=== PATIENT | female | born 1965 | race Caucasian/White ===

== ENCOUNTER 2018-03-30 09:00 | Observation (INO) ==
[~2018-03-30 09:00] MED LIST: Bacitracin 50,000 UNIT, Polymyxin B Sulfate 500,000 UNIT, Sodium Chloride IRRigation 1,... IR ONE
[2018-03-30] MEDS ORDERED: CeFAZolin Syr 2,000MG/20 ML 2,000 MG/20 ML SYRINGE IVPB ONE (09:31)
[2018-03-30] MEDS ORDERED: Albuterol 2.5 MG/3 ML NEBULIZER ONE (09:35)
[2018-03-30] MEDS ORDERED: Ringers Solution, Lactated 1,000 ML IVC SCH (09:45)
[2018-03-30] MEDS ORDERED: Scopolamine Patch 1.5 MG PATCH.TD72 TD ONE (09:56)
[2018-03-30] MEDS ORDERED: Famotidine 20 MG/2 ML VIAL IVP ONE (09:56)
[2018-03-30] MEDS ORDERED: Acetaminophen IV 1,000 MG/100 ML INFUS..BTL IVPB ONE (09:57)
[2018-03-30] MEDS ORDERED: Pregabalin 75 MG CAPSULE PO ONE (09:57)
[2018-03-30] MEDS ORDERED: *HR* LORazepam 1 MG TABLET PO STA (10:04)
--- NOTE | 2018-03-30 10:04 | Anesthesia Evaluation PreOp ---
Date of Encounter: 03/30/18 Time of Encounter: 10:02 - Past History Planned Operation: ACDF C5-7 Cardiac History: Denies any Significant Hx, Hyperlipidemia Pulmonary History: Smoker LEAD BUSINESS ANALYST History: Seizures (none in >24months since Keppra started), Other (Cervical RadiculopathyChronic pain - BUE pain & falling asleep , occasional LLE sx. Anxiety/Depression. PTSD with associated nightmares) Other Medical History: Denies Any Significant HX Anesthesia History: No Prior Anesthetic Complications, Past Anesthesia ( Colectomy, C-sections x 3, Iliostomy, Tubal, Anais, Hyster, Hernia repair), Problems ("VERY HIGH TOLERANCE to PAIN MEDS - IT TAKES A LOT") Alcohol Use: unknown Drug use: unknown Medications and Allergies Gabapentin [Neurontin] 300 - 600 mg PO HS 03/30/18 [History] Lovastatin [Lovastatin] 40 mg PO DAILY 03/30/18 [History] Mirtazapine [Remeron] 15 mg PO HS 03/30/18 [History] Tizanidine HCl [Tizanidine HCl] 2 - 4 mg PO TID PRN 03/30/18 [History] Trazodone HCl [Trazodone HCl] 100 mg PO HS PRN 03/30/18 [History] diazePAM [Valium] 5 mg PO TID 03/30/18 [History] levETIRAcetam [Keppra] 500 mg PO BID 03/30/18 [History] 3 Allergy/AdvReac Type Severity Reaction Status Date / Time doxycycline Allergy See Verified 03/30/18 10:08 Comments - Meds/Allergy Pre-op Review Medications Reviewed: Yes Allergies Reviewed: Yes Beta Blockers on Current Med List: No Anesthesia Results - Labs Laboratory Tests 03/28/18 03/28/18 03/28/18 15:12 15:12 15:12 WBC 8.4 Hgb 14.1 Hct 42.0 Plt Count 516 H PT 11.5 INR 1.1 APTT 29.4 Sodium 138 Potassium 3.8 Chloride 103 BUN 9 Est GFR (Non-Af Amer) > 60 Anesthesia Exam O2 Sat Height 1.52 m Height 1.52 m Weight 65.771 kg Weight 65.771 kg O2 Sat by Pulse Oximetry 98 Vital Signs Temp Pulse Resp BP Pulse Ox 97.8 F 94 18 141/91 98 03/30/18 09:27 03/30/18 09:27 03/30/18 09:27 03/30/18 09:27 03/30/18 09:27 Height: 5'1 Weight: 145# BMI = 28 NPO (# of Hours): MNOC - HEENT Pupil (Motor): Pupils equal, EOMI Mallampati: II Teeth: Normal (fair dentition) Oral Opening: Greater than 3 - LEAD BUSINESS ANALYST LOC: Oriented LEAD BUSINESS ANALYST Motor: Normal RUE, Normal LUE, Normal RLE, Normal LLE, Normal Face LEAD BUSINESS ANALYST Sensory: Normal: RUE, LUE, RLE, LLE, Face - Cardiac Rhythm: Regular Murmur: None - Pulmonary Breath Sounds: bilateral Clear Respiratory Effort: Symmetrical Anesthesia Assess/Plan ASA Score: 3 (HTN, Seizures, PTSD, Anxiety/Depression, Smoker) Modified [place] Scale for Level of Consciousness: Cooperative, oriented, and tranquil Anesthetic Plan: General Monitoring Plan: Standard Monitors Recovery Plan: PACU Anes Supervising Prov Stmt: Pt seen/evaluated, R&B discussed, questions answered and consent obtained. Li West MD
[2018-03-30] MEDS ORDERED: Lidocaine -MPF 2% 2 ML VIAL ONE (10:10)
[2018-03-30] MEDS ORDERED: cloNIDine HCl 0.1 MG TABLET PO ONE (10:10)
[2018-03-30] MEDS ORDERED: Dexamethasone 4 MG/ML VIAL ONE (10:10)
[2018-03-30] MEDS ORDERED: Ondansetron 4 MG/2 ML VIAL ONE (10:10)
[2018-03-30] MEDS ORDERED: Lidocaine -MPF 4% 5 ML AMPUL ONE (10:10)
[2018-03-30] MEDS ORDERED: *HR* FentaNYL (PF) 100 MCG/2 ML VIAL ONE ×2 (10:11→14:10)
[2018-03-30] MEDS ORDERED: *HR* Propofol 200 MG/20 ML VIAL IVP ONE (10:11)
[2018-03-30] MEDS: Albuterol 2.5 MG/3 ML NEBULIZER IH ONE ×2 (10:11→10:26)
[2018-03-30] MEDS ORDERED: *HR* Midazolam HCl 2 MG/2 ML VIAL ONE (10:11)
[2018-03-30] MEDS ORDERED: *HR* Remifentanil 1 MG VIAL IVP ONE (10:11)
--- NOTE | 2018-03-30 10:26 | History & Physical Report ---
Date of Encounter: 03/30/18 Time of Encounter: 10:25 24 Hour HP Update - Instructions Instructions: If the History and Physical is less than 30 days old and was completed prior to A.M. admission and or procedure and has NOT been updated on calendar day of procedure please complete this update prior to performing procedure. - Update Patient reports changes in Medical Condition: No Changes in examination, assessment, or condition: No Changes in Medication: No Preop tests/diagnostics Reviewed: Yes Pre-Op MRSA Screen: Negative Surgery Remains Indicated: Yes Consent for Planned Operative Procedure(s) Verified: Yes - Pre-Operative Checklist Preoperative Checklist Indicated: No Prophylactic Antibiotic Ordered: Yes Home Medications Include Beta Chivo: No Beta Chivo Taken Today (Day of Surgery): No Beta Chivo Taken Yesterday (Day Prior to Surgery): No Is VTE Prophylaxis Indicated?: Yes
[2018-03-30] MEDS ORDERED: *HR* FentaNYL PATCH 50 MCG PATCH TD ONE ×2 (10:42→10:45)
[2018-03-30] MEDS ORDERED: *HR* FentaNYL PATCH 25 MCG PATCH TD SCH (10:45)
[2018-03-30] MEDS ORDERED: EPHEDrine 50 MG/ML VIAL ONE (12:00)
[2018-03-30] MEDS ORDERED: *HR* PHENYLEPHRINE 1,000 MCG/10 ML SYRINGE IVP ONE ×2 (12:10→13:16)
[2018-03-30] MEDS ORDERED: *HR* Meperidine 25 MG/ML SYRINGE IVP PRN (12:49)
[2018-03-30] MEDS ORDERED: *HR* Labetalol 20 MG/4 ML SYRINGE IVP PRN (12:49)
[2018-03-30] MEDS ORDERED: *HR* OxyCODONE Immed Rel 5 MG TABLET PO PRN (12:49)
[2018-03-30] MEDS ORDERED: *HR* Promethazine 25 MG/ML VIAL IVP PRN (12:49)
[2018-03-30] MEDS ORDERED: Ondansetron 4 MG/2 ML VIAL IVP ONE (12:49)
--- NOTE | 2018-03-30 14:13 | Orthopedic Operative Note ---
Date of procedure: 03/30/18 Pre-op diagnosis: Cervical stenosis, cervical radiculopathy Post-op diagnosis: same Operation/Findings: Anterior cervical decompression and fusion C5-C7: The patient was brought to the operating room and placed supine on the operating room table. Successful general endotracheal anesthesia intubation was performed. Neurophysiologic monitoring personnel placed leads on the upper and lower extremities as well as the cranium for EMG monitoring purposes. Appropriate baseline potentials were noted by the neurophysiologic monitoring staff. Smith catheter was placed prior to positioning. Compression boots and stockings were placed for deep vein thrombosis prophylaxis. Padding was also placed all bony prominences including the ulnar nerve near the medial epicondyles of the elbows were appropriately padded. Mild traction was placed on the bilateral shoulders and taped into place. Preoperative antibiotics were administered. The area from the mandible bilaterally to the upper thoraces was prepped and draped in the usual sterile fashion. A transverse incision was made at the level of the cricoid cartilage which is approximately 3 cm in length and extended from the midline of the cervical spine laterally towards the sternocleidomastoid muscle on the left. We then performed standard medial approach to the carotid sheath. Sponges were used to tease the fascial medial to the sternocleidomastoid muscle while carefully controlling and palpating the carotid artery. Using careful dissection we were able to get to the level of the anterior vertebral bodies and longus coli muscles. The spinal needle was placed at the appropriate C6-7 level, and intraoperative radiograph was obtained which was a cervical spine lateral radiograph. The needle and radiograph confirmed we were at the correct C6-7 operative level. We further exposed this level by using Bovie cautery under the medial edge of the longus colli muscles to allow them to be retracted approximately 2 mm laterally on each side. An 11 blade was used to perform anterior discectomy at the appropriate C6-7 level after an initial annulotomy of the anterior longitudinal ligament and annulus was performed. Further disc material was removed with pituitary Rongeurs. Subsequently, Synthes pins were placed at the C6 and C7 vertebral bodies respectively to provide distraction. We then used a Trimline cervical retractor which was placed in both medial and lateral as well as inferior superior direction to allow full visualization of the appropriate C6-7 disc and C6 and C7 vertebral bodies. The Leica microscope was brought to the field and the remainder of the procedure was performed under the guidance of this microscope. Using pituitary rongeurs and small curettes, various micro- instruments, a full discectomy was performed at the appropriate C6-C7 level. The posterior longitudinal ligament was encountered and appeared partially calcified. A portion of this ligament was removed. After complete and thorough discectomy and removal of spondylitic material was performed the endplates of the C6 and C7 vertebral bodies were prepared with a bur until allow bleeding of cancellous bone. A 8mm trial graft was evaluated and appeared to fit quite well within the excised C6-7 disc space. A cortico- cancellous allograft of 8 mm was utilized, carefully tapped into place within the excised disc space with the aid of a bone tamp. It was seated approximately 2 mm from the anterior edge of the cortex of the adjacent vertebral bodies. We then turned our attention to the C5-6 level where a similar series of procedures was performed including discectomy, removal of spondylitic material, end plate preparation, and trial grafting. An 8mm trial fit well within the C5-6 disc space. A 8 mm allograft was then placed at C5-6. A cervical plate was then placed on the anterior aspect of the C5, C6, and C7 vertebral bodies. The plate was placed in the midline position after drilling six 13 mm self tapping screws and inserting them. They were locked in place using standard Venture plate maneuvers. At this point a lateral radiograph of the cervical spine was obtained and showed satisfactory position of the graft and plate. The wound was copiously irrigated and bleeders encountered were cauterized using Bovie cautery. Platysma was closed with interrupted 2-0 Vicryl sutures. Running 3-0 Monocryl suture was used for skin closure. Sterile dressing was placed over the neck wound. A cervical collar was placed. The patient was transferred to a hospital bed and extubated. The patient was noted to be fully motor and sensory intact in the recovery room at the end of the procedure. The medications. All sponge instrument and needle counts were correct at the end of the procedure. Anesthesia: GETA Surgeon: Jonathan Perdue Jr Was there an pediatric dental assistant present: No Estimated blood loss (cc): 25 Specimen: None Condition: stable Disposition: PACU
[2018-03-30] MEDS ORDERED: diazePAM 5 MG TABLET PO SCH (15:36)
[2018-03-30] MEDS ORDERED: Acetaminophen 325 MG TABLET PO PRN (15:36)
[2018-03-30] MEDS ORDERED: Naloxone 0.4 MG/ML INJ IVP PRN (15:36)
[2018-03-30] MEDS ORDERED: traZODone 50 MG TABLET PO PRN (15:36)
[2018-03-30] MEDS: Ringers Solution, Lactated 1,000 ML IVC SCH (15:40)
[2018-03-30] MEDS: CeFAZolin Pre 2,000 MG/100 ML 2,000 MG/100 ML BAG IVPB SCH (17:40)
[2018-03-30] MEDS: *HR* OxyCODONE Immed Rel 5 MG TABLET PO PRN (17:40)
[2018-03-30] MEDS: tiZANidine 4 MG TABLET PO PRN (20:10)
[2018-03-30] MEDS: *HR* HYDROcodone/Acet 5/325 mg TABLET PO PRN (20:10)
[2018-03-30] MEDS: levETIRAcetam 250 MG TABLET PO SCH (20:11)
[2018-03-30] MEDS: Mirtazapine 15 MG TABLET PO SCH (20:11)
[2018-03-31] MEDS: diazePAM 5 MG TABLET PO SCH ×4 (00:58→20:17)
[2018-03-31] MEDS: CeFAZolin Pre 2,000 MG/100 ML 2,000 MG/100 ML BAG IVPB SCH (00:58)
[2018-03-31] MEDS: *HR* OxyCODONE Immed Rel 5 MG TABLET PO PRN ×5 (00:58→22:22)
[2018-03-31] MEDS: Ringers Solution, Lactated 1,000 ML IVC SCH ×3 (00:58→20:16)
[2018-03-31] MEDS: *HR* HYDROcodone/Acet 5/325 mg TABLET PO PRN ×3 (02:33→16:43)
[2018-03-31] MEDS ORDERED: Acetaminophen IV 1,000 MG/100 ML INFUS..BTL IVPB ONE (03:44)
[2018-03-31] MEDS: levETIRAcetam 250 MG TABLET PO SCH ×2 (07:29→20:17)
--- NOTE | 2018-03-31 07:42 | Discharge Summary ---
- NOTES TO OUTPATIENT PROVIDER Notes to Outpatient Provider: Patient with seeking behavior and evidence of aberrant drug use. Please evaluate further for addiction risk and consider referral for counseling/treatment. Orders not resulted at time of discharge: Pending orders 03/31/18 08:16 XR cervical spine 2V [XR] Routine Date of Encounter: 04/01/18 Time of Encounter: 16:23 - Discharge Diagnosis (1) Status post cervical spinal fusion Priority: Primary Status: Acute (2) Cervical spinal stenosis Priority: Primary Status: Chronic (3) Cervical radiculopathy Priority: Primary Status: Chronic - Hospital Course Hospital course: Ms. Howard is a 53 year old female s/p Anterior cervical decompression and fusion C5-C7 on 03/30/[address] Perdue for Cervical stenosis, cervical radiculopathy The patient had an uneventful postoperative course with regard to her surgery. Progressed from intravenous analgesic needs to oral analgesic needs only. Patient developed drug-seeking behavior and was noted to be pulling bottles in and out of her purse and trying to discard them in emesis bags. She was found to have prescription that were not reported on her preoperative OARRS and empty prescription bottles in her room. With patient's abnormal behavior there was concern for illicit use. Patient was found to be in violation of preoperative pain contract with Dr. Perdue and therefore Dr. Perdue is requesting the patient not receive any narcotic prescriptions postoperatively from [facility]. Patient will be discharged with oral Tylenol as needed for pain and swelling. Remained neurovascularly intact and mobilized satisfactorily. All intraoperative and/or postoperative radiographic studies were satisfactory. Patient is discharged with plan for rehabilitation and follow-up in 2 weeks post discharge on analgesic medication and patient's home medications. - Time Spent with Patient Total time spent providing and/or coordinating discharge services: - Discharge Medications Prescriptions: Acetaminophen [Tylenol] 650 mg PO Q6HR PRN 7 Days #56 tablet PRN Reason: Pain Home Medications: Gabapentin [Neurontin] 300 - 600 mg PO HS 03/30/18 [History] Lovastatin 40 mg PO DAILY 03/30/18 [History] Mirtazapine [Remeron] 15 mg PO HS 03/30/18 [History] Tizanidine HCl 2 - 4 mg PO TID PRN 03/30/18 [History] Trazodone HCl 100 mg PO HS PRN 03/30/18 [History] diazePAM [Valium] 5 mg PO TID 03/30/18 [History] levETIRAcetam [Keppra] 500 mg PO BID 03/30/18 [History] Acetaminophen [Tylenol] 650 mg PO Q6HR PRN 7 Days #56 tablet 04/01/18 [Rx] Allergies/Adverse Reactions: 3 Allergy/AdvReac Type Severity Reaction Status Date / Time doxycycline Allergy See Verified 03/30/18 10:08 Comments Date of admission: 03/30/18 Primary care physician: Kristin Davis MD Consults: 03/30/18 15:36 Consult to Occupational Therapy [CONS] Routine Comment: Evaluate, develop and implement POC Reason for Consult: Postoperative rehabilitation Does patient have active BEDREST order?: No Is patient medically & hemodynamically stable?: Yes Patient assessed for mobility or mobilized this visit?: No Consult to Physical Therapy [CONS] Routine Comment: Evaluate, develop and implement POC Reason for Consult: Postoperative rehabilitation Does patient have active BEDREST order?: No Is patient medically & hemodynamically stable?: Yes Patient assessed for mobility or mobilized this visit?: No Consult to Spine Navigator [CONS] [CONS] Routine - VTE Documentation of Mechanical Device: Intermittent pneumatic compression device - Impressions ITS Impressions Cervical Spine X-Ray 03/30/18 00:00 IMPRESSION: Intraoperative cervical spine radiograph demonstrates marker placement at C5-C6 disc space anteriorly. Findings were discussed with Jonathan Perdue at 12:55 pm on 03/30/2018. D/ / Ponce Granger MD / Ponce Granger MD Interpreting Provider: Ponce Granger MD Cervical Spine X-Ray 03/30/18 00:00 IMPRESSION: Single limited lateral intraprocedural image demonstrates ACDF at C5 through C7 without gross adverse abnormality noted. D/ / 03/30/2018 17:41:16 Justo English MD / crow Interpreting Provider: Justo English MD - Patient Status Disposition: Home Health Service Condition: Fair Functional capacity at discharge: uses cane/walker Overall status at discharge: patient is progressing back to baseline - Discharge Instructions Follow Up With: Eveline Chery PAC [Physician Sample Finisher] - 04/12/18 3:30 pm Jonathan Perdue Jr, MD [Partnered Physician] - 07/01/18 11:45 am Additional Instructions: Discharge Instructions: Cervical Please call [facility] ([phone]), your Primary Care Physician, or report to the ER if you have any of the following symptoms: Fever greater that 101.5, increased pain/redness/drainage/odor for your incision site or any other concerning symptoms. ACTIVITY * May Shower * No Tub Baths * No Smoking * No Swimming * No Driving * Wear Collar when up walking MEDICATIONS: Upon discharge resume your home medications. Take all the medications as prescribed. Take a stool softener if taking narcotic pain medications. Stool softeners are only effective if you drink enough fluids. Drink 6-8 glass of water or fluids a day, unless this is not allowed for another health problem. Despite using stool softeners, if you haven't had a bowel movement in 3 days, please switch to a gentle laxative. Gentle laxatives are sold over the counter. You should have a bowel movement within 24 hours, if not call the office. You will be discharged from the hospital with a prescription for pain medication. You are encouraged to decrease the use of narcotic pain medication as tolerated. Should you require a refill, please call the office. It is best to call 48-72 hours in advance of needing a prescription refill so you don't run out of medication. WOUND CARE: Leave steri-strips in place until they fall off on their own. Pat dry when you get out of the shower. FOLLOW-UP: Please follow up with your surgeon in the orthopedic clinic in 2 weeks from the day of surgery. References: [employer] ([email or web address]) - Diet and Activity Activity: as per physical therapy Diet: advance to your usual diet
--- NOTE | 2018-03-31 09:56 | Orthopedics Progress Note ---
Date of Encounter: 03/31/18 Time of Encounter: 09:15 - Assessment and Plan (1) Status post cervical spinal fusion Current Visit: Yes Status: Acute (2) Cervical spinal stenosis Current Visit: Yes Status: Chronic (3) Cervical radiculopathy Current Visit: Yes Status: Chronic Subjective Principal diagnosis: Cervical stenosis, cervical radiculopathy Interval history: Postoperative day #1 status post Anterior cervical decompression and fusion C5- C7 performed on 03/30/[address] Perdue for Cervical stenosis, cervical radiculopathy. The patient is without complaints. She exhibits some odd behavior, repetitively asking for assistance to the restroom as well as needing a toothbrush and toothpaste. She is preoccupied with her cell phone as well as cords laying about the room. She is very uncooperative with any examination. With examination of her right hand she makes a fist and states "look my hand I cannot open it" however she is reaching for an grasping coffee mug with good control as well as the positioning herself around the bed and dressing fine objects such as her cell phone charging cord and moving those objects around with no problem. Afebrile vital signs are stable. Incision is clean dry and intact. Neurovascularly intact with regard to bilateral lower extremities. Fires all upper and lower extremity motor groups. Assessment: Stable postoperative. Questionable postoperative confusion Plan: Reviewed postoperative restrictions and precautions. Patient very distracted during this time, is very hard to keep her attention. Collar present and patient aware to apply with activity. Bracing to adjust collar. Mobilize with therapy Continue analgesics as needed Discharge planning - awaiting therapy recommendations Radiographs pending Therapy recommendations were not made today. Discussed with therapy Department who states that they did not receive the consult secondary to technology issues. Did discuss with them that this is necessary prior to patient's discharge. They state that they will evaluate her first thing in the morning on 04/01/18. Discussed patient's confusion and peculiar behavior with Dr. Perdue. She agrees that this is not necessarily patient's baseline. We will decrease sedative medications including pain medication to reduce likelihood of these contributing to patient's confusion. Objective Vital signs: Vital Signs Temp Pulse Resp BP Pulse Ox 03/31/18 08:24 94 03/31/18 08:21 97.6 F 83 16 131/78 94 05/23/18 23:01 97.6 F 79 14 116/76 93 03/30/18 17:20 97.9 F 89 18 129/73 93 03/30/18 16:45 98 F 91 18 120/78 94 03/30/18 16:15 97.9 F 92 18 122/81 92 03/30/18 15:45 98 F 88 16 115/74 94 03/30/18 15:15 97.9 F 91 18 127/76 93 03/30/18 14:46 98.1 F 91 20 122/50 93 03/30/18 14:36 95 20 157/99 94 03/30/18 14:26 97 20 142/96 97 03/30/18 14:16 97.7 F 93 16 142/82 92 Intake and Output 03/30/18 03/31/18 03/31/18 23:59 07:59 15:59 Intake Total 100 / 100 2049 630 / 630 Output Total 450 / 450 1000 / 1000 Balance 100 / 100 1600 / 1600 -370 / -370 Intake: IV Fluids 100 / 100 2049 150 / 150 Lactated Ringers 1,000 ML @ 100 1850 / 1850 150 / 150 mls/hr IVC .Q10H [facility] Rx#: [id number] Ofirmev 1,000 mg/100 ml 1,000 100 / 100 mg In 100 ml @ 400 mls/hr IVPB ONCE ONE Rx#:[id number] Ancef Premix 2,000 MG/100 ML 2, 100 / 100 100 / 100 000 mg In 100 ml @ 200 mls/hr IVPB Q8H [facility] Rx#:[id number] Oral 480 / 480 Output: Catheter 450 / 450 1000 / 1000 - VTE Documentation of Mechanical Device: Intermittent pneumatic compression device Consult Discharge Plan - Plan Additional Instructions: Discharge Instructions: Cervical Please call [facility] ([phone]), your Primary Care Physician, or report to the ER if you have any of the following symptoms: Fever greater that 101.5, increased pain/redness/drainage/odor for your incision site or any other concerning symptoms. ACTIVITY * May Shower * No Tub Baths * No Smoking * No Swimming * No Driving * Wear Collar when up walking MEDICATIONS: Upon discharge resume your home medications. Take all the medications as prescribed. Take a stool softener if taking narcotic pain medications. Stool softeners are only effective if you drink enough fluids. Drink 6-8 glass of water or fluids a day, unless this is not allowed for another health problem. Despite using stool softeners, if you haven't had a bowel movement in 3 days, please switch to a gentle laxative. Gentle laxatives are sold over the counter. You should have a bowel movement within 24 hours, if not call the office. You will be discharged from the hospital with a prescription for pain medication. You are encouraged to decrease the use of narcotic pain medication as tolerated. Should you require a refill, please call the office. It is best to call 48-72 hours in advance of needing a prescription refill so you don't run out of medication. WOUND CARE: Leave steri-strips in place until they fall off on their own. Pat dry when you get out of the shower. FOLLOW-UP: Please follow up with your surgeon in the orthopedic clinic in 2 weeks from the day of surgery. References: [employer] ([email or web address]) Referrals: Eveline Chery PAC [Physician Management Tech] - 04/12/18 3:30 pm Jonathan Perdue Jr, MD [Partnered Physician] - 07/01/18 11:45 am Prescriptions: Oxycodone HCl 5 mg PO Q6H PRN 7 Days #28 tablet PRN Reason: Severe Pain
[2018-03-31] MEDS: tiZANidine 4 MG TABLET PO PRN ×2 (10:20→16:43)
[2018-03-31] MEDS: Acetaminophen IV 1,000 MG/100 ML INFUS..BTL IVPB PRN ×2 (11:28→18:08)
[2018-03-31] MEDS: Mirtazapine 15 MG TABLET PO SCH (20:17)
[2018-03-31] MEDS: Ondansetron 4 MG/2 ML VIAL IVP PRN (21:23)
[2018-04-01] MEDS: tiZANidine 4 MG TABLET PO PRN (01:50)
[2018-04-01] MEDS: *HR* HYDROcodone/Acet 5/325 mg TABLET PO PRN (01:50)
[2018-04-01] MEDS: Ondansetron 4 MG/2 ML VIAL IVP PRN ×2 (04:06→10:18)
[2018-04-01] MEDS: Ringers Solution, Lactated 1,000 ML IVC SCH (04:06)
[2018-04-01] MEDS ORDERED: *HR* HYDROcodone/Acet 5/325 mg TABLET PO PRN (07:54)
[2018-04-01] MEDS: diazePAM 5 MG TABLET PO SCH ×2 (08:06→15:37)
[2018-04-01] MEDS: levETIRAcetam 250 MG TABLET PO SCH (08:06)
--- NOTE | 2018-04-01 08:43 | Orthopedics Progress Note ---
Date of Encounter: 04/01/18 Time of Encounter: 08:43 - Assessment and Plan (1) Status post cervical spinal fusion Current Visit: Yes Status: Acute (2) Cervical spinal stenosis Current Visit: Yes Status: Chronic (3) Cervical radiculopathy Current Visit: Yes Status: Chronic Subjective Principal diagnosis: Cervical stenosis, cervical radiculopathy Interval history: Postoperative day #2 status post Anterior cervical decompression and fusion C5- C7 performed on 03/30/[address] Perdue for Cervical stenosis, cervical radiculopathy. The patient is stating that she needs IV pain medication today. She continues to exhibit some peculiar behavior behavior, including now some drug-seeking behavior repetitively asking for pain medication through her IV. She informs this provider that she spoke with Dr. Perdue prior to surgery that she was "promised" that she would receive "pain medicine in my IV and then pain medicine by mouth and then pain medicine in my IV and again and again". Patient noted to have improved mental clarity today and is not repetitively asking about her toothbrush however she does state numerous times that she wants IV pain medication. Patient states her right hand feels much better better today after moving IV from right to left hand. She demonstrates improved hand motion. Afebrile vital signs are stable. Incision is clean dry and intact. Neurovascularly intact with regard to bilateral lower extremities. Fires all upper and lower extremity motor groups. Assessment: Stable postoperative. Questionable drug-seeking behavior Plan: Reviewed postoperative restrictions and precautions. Patient very distracted during this time, is very hard to keep her attention as she continues to ask for IV pain medication. Collar present and patient aware to apply with activity. Mobilize with therapy - therapy recommending ECF; will make sure continuity is available Continue analgesics as needed - dosing schedule change secondary to patient seeking behavior and improved mental clarity today Discharge planning - awaiting SW recommendations; ECF versus home health Radiographs pending Later entry from mid morning: Receive call from [facility] nurse, that pill bottles were found in patient's room and patient was noted to have constricted pupils. Patient again exhibiting strange behavior as was noted yesterday tearing this time. Requested security as well as nurse retail associate manager bilingual be involved in patient's situation for patient's safety to evaluate if patient has been taking medications that were not prescribed or illicit. Also requested that nurse hold all controlled substances for the next 6 hours to see if patient 's mood and unsteadiness on her feet improved with holding these medications. Notify Dr. Perdue of the above situation he states he agreement with plan. He requests switching to observation status secondary concern for patient needing ECF placement and therapy's concerns. Objective Vital signs: Vital Signs Temp Pulse Resp BP Pulse Ox 04/01/18 06:58 98.5 F 90 16 125/80 93 04/01/18 04:18 98.3 F 84 17 120/77 92 03/31/18 20:38 98.3 F 83 17 97/63 90 03/31/18 16:00 98 F 82 16 100/67 94 Intake and Output 03/31/18 04/01/18 04/01/18 23:59 07:59 15:59 Intake Total 873 / 873 1200 / 1200 Output Total 150 / 150 500 / 500 Balance 723 / 723 700 / 700 Intake: IV Fluids 873 / 873 1000 / 1000 Lactated Ringers 1,000 ML @ 100 773 / 773 1000 / 1000 mls/hr IVC .Q10H YULY Rx#: [id number] Ofirmev 1,000 mg/100 ml 1,000 100 / 100 mg In 100 ml @ 400 mls/hr IVPB Q6HR PRN Rx#:[id number] Oral 0 / 0 200 / 200 Output: Urine 150 / 150 300 / 300 Emesis 200 / 200 Other: # Voids 1 Weight 65.6 kg Patient Weight 04/01/18 23:59 Weight 65.6 kg - VTE Documentation of Mechanical Device: Graduated compression elastic hosiery Consult Discharge Plan - Plan Additional Instructions: Discharge Instructions: Cervical Please call [facility] ([phone]), your Primary Care Physician, or report to the ER if you have any of the following symptoms: Fever greater that 101.5, increased pain/redness/drainage/odor for your incision site or any other concerning symptoms. ACTIVITY * May Shower * No Tub Baths * No Smoking * No Swimming * No Driving * Wear Collar when up walking MEDICATIONS: Upon discharge resume your home medications. Take all the medications as prescribed. Take a stool softener if taking narcotic pain medications. Stool softeners are only effective if you drink enough fluids. Drink 6-8 glass of water or fluids a day, unless this is not allowed for another health problem. Despite using stool softeners, if you haven't had a bowel movement in 3 days, please switch to a gentle laxative. Gentle laxatives are sold over the counter. You should have a bowel movement within 24 hours, if not call the office. You will be discharged from the hospital with a prescription for pain medication. You are encouraged to decrease the use of narcotic pain medication as tolerated. Should you require a refill, please call the office. It is best to call 48-72 hours in advance of needing a prescription refill so you don't run out of medication. WOUND CARE: Leave steri-strips in place until they fall off on their own. Pat dry when you get out of the shower. FOLLOW-UP: Please follow up with your surgeon in the orthopedic clinic in 2 weeks from the day of surgery. References: [employer] (www.apta.org) Referrals: Eveline Chery PAC [Physician Client Relationship Consultant] - 04/12/18 3:30 pm Jonathan Perdue Jr, MD [Partnered Physician] - 07/01/18 11:45 am Prescriptions: Acetaminophen [Tylenol] 650 mg PO Q6HR PRN 7 Days #56 tablet PRN Reason: Pain
[2018-04-01] MEDS ORDERED: *HR* Promethazine 25 MG/ML VIAL IVP PRN (10:16)
[2018-04-01] MEDS ORDERED: Ondansetron 4 MG/2 ML VIAL IVP PRN (16:02)
[2018-04-01 17:19] VITALS: BP 119/75
== END 2018-04-01 18:20 | disposition home or self-care (01) ==
LOC: 3ANU 09:00 → SAMDAY 09:00 → 3ANU 15:02
PROVIDERS: ADMIT Orthopaedic Surgery Orthopaedic Surgery of the Spine; ATTEND Orthopaedic Surgery Orthopaedic Surgery of the Spine

== ENCOUNTER 2018-08-22 19:58 | Inpatient (IN) ==
--- NOTE | 2018-08-22 22:26 | Internal Med History&Physical ---
Addendum entered and electronically signed by Yoandy Mahoney DO 23:35: SARA: Scr 2.19 at [facility]. Etiology pre-renal volume loss in addition to septic shock. Avoid nephrotoxic agents. Repeat bmp. urinalysis. Original Note: <MaruYoandy Cohen - Last Filed: 08/22/18 23:25> Date of Encounter: 08/22/18 Time of Encounter: 22:08 Internal Medicine - H&P: HPI Chief complaint: Diarrhea Admitted From: Hospital to Hospital Transfer Plans for Post Hospital Care: Home History of present illness: Ms. Howard is a 53 year old female presents transfer from [facility] with chief complaint of diarrhea. Patient reports she has a history of C. difficile infection in 2012 that resulted in colectomy with diverting ileostomy. In 2013 she had a revision. Patient was prescribed amoxicillin in July for upper respiratory infection. Patient took amoxicillin for 6 days and on the seventh day developed profuse diarrhea and was diagnosed with Clostridium difficile infection. Patient was started on 10 days of vancomycin orally on August 08. Her diarrhea improved and she started to have formed stools. However once regimen is completed she again developed diarrhea and became more lethargic in the past 2 days. She reports multiple bouts of diarrhea and one bout of vomiting. She presented to [facility] and was found to be hypotensive unresponsive to IV fluids (4L) and had a right femoral line placed and started on norepinephrine. CT abdomen and pelvis showed possible colitis within the rectosigmoid colon, ileus and or gastroenteritis without polyps obstruction. Patient was then transferred to [place]. Patient is able to tolerate by mouth intake, denies nausea. She reports abdominal pain throughout her lower abdomen. She denies headache, blurry vision, shortness of breath, lower extremity pain. Past Med Surg Social Fam HX - Past Medical History Medical history: hyperlipidemia, seizures Additional medical history: C. difficile Psychiatric history: anxiety - Past Surgical History Surgical History: colectomy - Social History Smoking Status: Current every day smoker Smokeless Tobacco Status: No Alcohol use: occasionally Drug use: unknown, marijuana - Family History Mother Hx Family Endocrine Disorder: Yes (Diabetes) Internal Medicine - H&P: Meds Gabapentin [Neurontin] 300 - 600 mg PO HS 03/30/18 [History] Lovastatin 40 mg PO DAILY 03/30/18 [History] Tizanidine HCl 2 - 4 mg PO TID PRN 03/30/18 [History] diazePAM [Valium] 5 mg PO TID 03/30/18 [History] levETIRAcetam [Keppra] 500 mg PO BID 03/30/18 [History] Acetaminophen [Tylenol] 650 mg PO Q6HR PRN 7 Days #56 tablet 04/01/18 [Rx] 3 Allergy/AdvReac Type Severity Reaction Status Date / Time doxycycline Allergy See Verified 03/30/18 10:08 Comments All Systems PM: A 10-system review of systems was performed and is negative for pertinent findings except as documented above in the HPI. Review of systems: Constitutional: Denies fever, chills HEENT: Denies headache, trauma, blurry vision, eye discharge, ear pain, ear discharge neck pain, reports sore throat, reports rhinorrhea Heart: Denies chest pain palpitations, LE edema Lungs: Denies shortness of breath cough Abdomen: Reports abdominal pain diarrhea. Denies nausea, vomiting MSK: Denies back pain, falls, joint pain Kidney: Denies dysuria, hematuria Skin: Denies rash, ulcers Neuro: Denies numbness and tingling Psych: denies axniety, depression - Constitutional Exam: General: pleasant, mild distress HEENT: Head atraumatic, normocephalic, EOMI, PERRL, absent ear discharge or trauma, Moist Mucous Membranes, uvula midline Neck: nontender to palpation, absent lymphadenopathy, Cardiovascualr: Regular rate and rhythm with no murmur, absent gallops or rubs, absent pedal edema, radial pulses 2 out of 4 Lungs: Clear to auscultation bilaterally, not in respiratory distress Abdomen: Soft tender, nondistended hyperactive bowel sounds, absent hepatomegaly Skin: warm and dry, absent rash, absent open wounds and nodules MSK: absent clubbing, cyanosis, joints without swelling Neuro: Cranial nerves II through XII intact, UE and LE sensation equal bilaterally, UE and LEstrength 5/5, alert oriented 3, Psych: good insight and judgment - Assessment and plan (1) Septic shock Current Visit: Yes Status: Acute Assessment and plan: Patient has leukocytosis, tachycardia Radiology C. difficile colitis Was given 4 L normal saline but remained hypotensive Initial lactic acid 2.5 repeat 1.5 Started on norepinephrine Plan: Repeat CBC, lactic acid. Continue norepinephrine with map goal of 60. Start lactated Ringer's (total 2000L). (2) Clostridium difficile colitis Current Visit: Yes Status: Acute Assessment and plan: Patient has recurrent Clostridium difficile infection Initial infection was not 2013 which resulted in a colectomy Current infection secondary to use of amoxicillin CT abdomen pelvis shows sigmoid colitis, possible ileus. This was done at [facility] and will be transferred to our PACS system. We will obtain a KUB. Start oral vancomycin, IV Flagyl. If patient cannot tolerate by mouth, has worsening abdominal pain, distention we will consult surgery and initiated NG tube. (3) History of seizures Current Visit: Yes Status: Acute Assessment and plan: Patient has history of seizures We will continue home dose of Keppra. (4) History of hyperlipidemia Current Visit: Yes Status: Acute Assessment and plan: Continue lovastatin (5) DVT prophylaxis Current Visit: Yes Status: Acute Assessment and plan: Heparin subcutaneous - Time Spent With Patient Total time spent is greater than 50% in coordination of care (as documented) at patient's floor/unit and/or counseling patient: <ParvinTabithatomekastephen - Last Filed: 08/22/18 23:40> Date of Encounter: 08/22/18 Internal Medicine - H&P: HPI History of present illness: Ms. Howard is a 53 year old female All Systems PM: A 10-system review of systems was performed and is negative for pertinent findings except as documented above in the HPI. - Constitutional Vitals: Temp Pulse Resp BP Pulse Ox 98.2 F 67 16 87/60 96 08/22/18 22:00 08/22/18 22:00 08/22/18 22:00 08/22/18 22:00 08/22/18 22:00 - Time Spent With Patient Total time spent is greater than 50% in coordination of care (as documented) at patient's floor/unit and/or counseling patient: - Attending Attestation Aline Howard is a 53 year old woman who reports a history of adult-onset epilepsy for which she takes levetiracetam and who developed severe C.diff in 2012 that required partial colectomy, presenting on transfer from [facility] for a recurrence. She states that last month she had an inner ear infection and was placed on amoxicillin by her PCP. 6 days into treatment she developed black, watery diarrhea. She was then diagnosed w/ C.diff on August 08 and started on oral vancomycin completing a 10 day course. 2 days after completion she developed another diarrheal recurrence with significant stomach cramping. She presented to [facility] today where she was found hypotensive and not responsive to 4L of IVF and subsequently started on norepinephrine via right femoral line. She was given IV metronidazole and transferred here. On my assessment she appears clinically well although she remains borderline hypotensive. She is conversant and was able to relay the above information to me in detail. At this time her chief complaint is lower abdominal discomfort. She feels she may be able to tolerate PO and does not want an NG tube and prefers not to have a rectal enema. She reports a family history of diabetes in mother and father. Vitals reviewed. Physical exam remarkable for well-developed white female lying comfortably in bed in no acute distress, dry oral mucosa, mild conjunctivae pallor, EOMI and PERRLA, no JVD or LAD, CTABL, normal S1/S2, surgical incision sites of prior surgery noted on abdomen, non-distended, mildly tender to palpation diffusely but no peritoneal reaction, no signs of peripheral cyanosis or edema on extremities, AO 4, no focal deficits and affect appropriate. We will admit to ICU for severe sepsis/septic shock due to severe C.diff colitis (recurring) as evidenced by initial lactic acidemia and hypotension requiring vasopressor support. Will need repeat abdominal imaging and serial abdominal exams. Obtain CT images from [facility]. Surgical and ID consults needed. IV fluid resuscitation and wean pressors as tolerated. Start 500 mg oral vancomycin by mouth every 6 hours as well as IV metronidazole 500 mg every 8 hours. Continue antiepileptic medications to prevent seizure. DVT prophylaxis with heparin. CCT 55 mins. CLIVE ARIZMENDI.
[2018-08-22] MEDS ORDERED: Naloxone 0.4 MG/ML INJ IVP PRN (22:29)
[2018-08-22] MEDS ORDERED: Ringers Solution, Lactated 1,000 ML IVC SCH (22:45)
[2018-08-22] MEDS ORDERED: Vancomycin Oral Soln 125 MG/2.5 ML UDC PO SCH (23:00)
[2018-08-22] MEDS: *HR* Heparin 5,000 UNIT/ML VIAL SQ SCH (23:29)
[2018-08-22] MEDS: levETIRAcetam 250 MG TABLET PO SCH (23:30)
[2018-08-22] MEDS: diazePAM 2 MG TABLET PO SCH (23:30)
[2018-08-22] MEDS: Gabapentin 300 MG CAPSULE PO SCH (23:30)
[2018-08-22] MEDS: Norepinephrine 4 MG in D5% in Water 250 ML IVC SCH (23:31)
[2018-08-22] MEDS: MetroNIDAZOLE 500 MG/100 ML 500 MG/100 ML BAG IVPB SCH (23:32)
[2018-08-23] MEDS: Ringers Solution, Lactated 1,000 ML IVC SCH ×2 (00:24→08:40)
[2018-08-23 00:28] LABS: VBG Ionized Calcium 1.13 mmol/L (1.15-1.35)
[2018-08-23 00:44] LABS: Magnesium 1.6 mg/dL (1.6-2.6)
[2018-08-23 00:45] LABS: Alanine Aminotransferase 46 Units/L (7-52); Albumin 3.3 g/dL (3.5-5.7); Albumin/Globulin Ratio 1.7 (1.1-2.2); Alkaline Phosphatase 90 Units/L (34-104); Aspartate Amino Transferase 19 Units/L (13-39); BUN/Creatinine Ratio 15 (6-26); Bilirubin,Total 0.7 mg/dL (0.3-1.0); Blood Urea Nitrogen 13 mg/dL (6-20); Calcium 7.8 mg/dL (8.6-10.3); Carbon Dioxide 19 mEq/L (23-29); Chloride 107 mEq/L (98-107); Globulin 1.9 g/dL (2.4-3.5); Glucose 122 mg/dL (70-105); Hematocrit 32.3 % (35.3-44.9); Hemoglobin 10.6 g/dL (11.5-15.4); Mean Corpuscular HGB Conc 32.8 g/dL (31.6-35.5); Mean Corpuscular Hemoglobin 32.7 pg (28.0-33.3); Mean Corpuscular Volume 99.7 fL (83.0-100.0); Mean Platelet Volume 8.7 fL (9.4-12.4); Osmolality,Calculated 277 (280-300); Platelet Count 369 K/mcL (140-400); Potassium 3.6 mEq/L (3.5-5.1); Red Blood Count 3.24 M/mcL (3.82-4.97); Red Cell Distribution Width 12.6 % (11.5-14.5); Sodium 133 mEq/L (136-145); Total Protein 5.2 g/dL (6.4-8.9); eGFR For Non-African Americans > 60 (> 60)
[2018-08-23 00:46] LABS: Bilirubin,Urine Negative (Negative); Blood,Urine Moderate (Negative); Clarity,Urine Clear (Clear); Color,Urine Dark Yellow (Yellow); Glucose,Urine (UA) Normal (Normal); Ketones,Urine Negative (Negative); Leukocyte Esterase,Urine Negative (Negative); Nitrite,Urine Negative (Negative); Protein,Urine 30 mg/dL (Neg-Trace); Specific Gravity,Urine 1.014 (1.010-1.025); Urobilinogen,Urine Normal (Normal)
[2018-08-23 00:49] LABS: Bacteria,Urine None Seen per hpf (None-Few); Hyaline Casts,Urine None Seen per lpf (None-Few); Squamous Epithelial Cell,Urine Few per lpf (None-Few); WBC,Urine 0-3 per hpf (0-3)
[2018-08-23 01:13] LABS: Basophils # 0.2 K/mcL (0.0-0.2); Lymphocytes # 1.9 K/mcL (0.6-4.6); Neutrophils # 4.5 K/mcL (1.6-8.9); Platelet Estimate Normal (Normal)
[2018-08-23] MEDS ORDERED: Isovue-370 500 ML INFUS..BTL IV ONE (05:27)
[2018-08-23] MEDS: *HR* Heparin 5,000 UNIT/ML VIAL SQ SCH ×3 (06:15→20:44)
[2018-08-23] MEDS: MetroNIDAZOLE 500 MG/100 ML 500 MG/100 ML BAG IVPB SCH ×3 (08:41→23:05)
[2018-08-23] MEDS: Potassium Chloride 40 MEQ/200 ML BAG IVPB PRN (08:41)
[2018-08-23] MEDS: levETIRAcetam 250 MG TABLET PO SCH ×2 (08:43→20:43)
[2018-08-23] MEDS: diazePAM 2 MG TABLET PO SCH ×2 (08:43→20:43)
--- NOTE | 2018-08-23 09:16 | Pulmonology Consult Note ---
<Harjit Pickering - Last Filed: 08/23/18 11:18> Date of Encounter: 08/23/18 Time of Encounter: 09:16 Assessment and Plan (1) Septic shock Current Visit: Yes Status: Acute Patient is currently afebrile, non-tachycardic, nontachypneic, and without leukocytosis Blood pressure continues to be hypotensive despite Levophed 3 g/minute Patient received 4 L normal saline from outside facility and is currently receiving another 2 L Ringer's lactate in the ICU Lactic acid is currently normal at 1 Continue to monitor blood pressure and response to fluid therapy-we will reevaluate after completing 2 L (2) Clostridium difficile colitis Current Visit: Yes Status: Acute Patient has recurrent Clostridium difficile infection Initial infection was in 2012 which resulted in colectomy with revision in 2013 Current infection is likely secondary to the use of amoxicillin to treat upper respiratory infection CT of the abdomen and pelvis [facility] shows sigmoid colitis with a possible ileus KUB x-ray shows dilation of the small bowel and colon-concerning for toxic megacolon in the setting of C. difficile Continue oral vancomycin and intravenous Flagyl Patient will be monitored closely for any new or worsening abdominal pain, distention, nausea/vomiting or by mouth intolerance-we will consult surgery and initiate NG tube if necessary (3) History of seizures Current Visit: Yes Status: Acute Patient has a history of adult onset epilepsy We will continue home dose of Keppra Gabapentin for neuropathic pain 2 mg diazepam twice a day for anxiety-we will monitor for signs of withdrawal as home dose is 5 mg 3 times a day (4) History of hyperlipidemia Current Visit: Yes Status: Acute Continue atorvastatin (5) DVT prophylaxis Current Visit: Yes Status: Acute Subcutaneous heparin 5000 units 3 times a day History of Present Illness Consult date: 08/23/18 Reason for consult: other (Possible sepsis) Chief complaint: Nausea, vomiting, abdominal pain History of present illness: Patient is a 53-year-old female who presents from to [facility] ICU from [facility] with the chief complaint of diarrhea. The patient has a positive history of recurrent Clostridium difficile infection which began in 2012 which resulted in colectomy with diverting ileostomy, which was revised in 2013. Patient was treated in July 2018 for upper respiratory infection with amoxicillin 6 days and developed profuse diarrhea and was diagnosed with C. difficile infection. Patient was then started on 10 days of oral vancomycin beginning August 08. Her diarrhea subsequently improved and she began to form solid stools. However once the regimen was completed she began to develop multiple bouts of diarrhea and vomiting which led to her becoming lethargic. Patient presented to [facility] with hypotension and was unresponsive. A right femoral line was placed and the patient was started on Levophed and received a 4 L IV fluid bolus. CT abdomen and pelvis showed possible colitis within the rectosigmoid sigmoid colon, ileus and/or gastroenteritis without polyps or obstruction. KUB x-ray performed at [facility] showed gaseous distention of the small and large bowel-concerned for toxic megacolon secondary to Clostridium C. difficile infection. Patient is being closely monitored and is currently able to tolerate by mouth intake, she denies any new abdominal pain although reports that she is "sore" diffusely throughout her abdomen. Patient will be monitored closely for any new or worsening abdominal pain, distention, or intolerance of by mouth intake. Past Med Surg Social Fam HX - Past Medical History Medical history: hyperlipidemia, seizures Additional medical history: C. difficile Psychiatric history: anxiety - Past Surgical History Surgical History: appendectomy, , colectomy Additional surgical history: bowel resection - Social History Smoking Status: Current every day smoker Smokeless Tobacco Status: No Alcohol use: occasionally Drug use: marijuana - Family History Mother Hx Family Endocrine Disorder: Yes (Diabetes) Medications and Allergies Gabapentin [Neurontin] 300 - 600 mg PO HS 03/30/18 [History] Lovastatin 40 mg PO DAILY 03/30/18 [History] Tizanidine HCl 2 - 4 mg PO TID PRN 03/30/18 [History] diazePAM [Valium] 5 mg PO TID 03/30/18 [History] levETIRAcetam [Keppra] 500 mg PO BID 03/30/18 [History] Acetaminophen [Tylenol] 650 mg PO Q6HR PRN 7 Days #56 tablet 04/01/18 [Rx] 3 Allergy/AdvReac Type Severity Reaction Status Date / Time doxycycline Allergy See Verified 03/30/18 10:08 Comments All Systems: The remainder of the systems were reviewed and are negative - Constitutional Constitutional: anorexia, headache(s) - EENT Eyes: other (The patient reports some blurriness of her vision which she ascribes to aging) Nose, mouth and throat: dysphagia, headache(s) - Cardiovascular Cardiovascular: no chest pain, no dyspnea, no leg edema - Respiratory Respiratory: no dyspnea - Gastrointestinal Gastrointestinal: abdominal pain (Patient reports "sore" abdomen diffusely-no new abdominal pain in the last 24 hours), diarrhea, vomiting (Patient states she had a vomiting episode last night), no hematochezia - Genitourinary Genitourinary: no hematuria - Neurological Neurological: numbness, tingling (Patient admits to chronic paresthesia) Physical Examination Vital Signs: Vital Signs, Last 4 Hours Pulse Resp BP Pulse Ox 08/23/18 06:00 72 16 88/57 93 General appearance: no acute distress, alert Eyes: nonicteric ENT: oropharynx moist Effort: normal Auscultation: bilateral: clear Cardiovascular: regular rate and rhythm Gastrointestinal: normoactive bowel sounds, soft, non-tender, non-distended Integumentary: normal Extremities: no cyanosis, no edema, pulses normal non-focal exam Results - Laboratory Findings CBC and BMP: 08/22/18 22:29 08/22/18 22:29 Abnormal lab findings: Abnormal lab results RBC 3.24 M/mcL (3.82-4.97) L 08/22/18 22:29 Hgb 10.6 g/dL (11.5-15.4) L 08/22/18 22: Hct 32.3 % (35.3-44.9) L 08/22/18 22: MPV 8.7 fL (9.4-12.4) L 08/22/18 22: Band Neutrophils % 18.0 % (0-4) H 08/22/18 22: Metamyelocytes % 10.0 % (0) H 08/22/18 22: Myelocytes % 2.0 % (0) H 08/22/18 22:29 Sodium 133 mEq/L (136-145) L 08/22/18 22:29 Carbon Dioxide 19 mEq/L (23-29) L 08/22/18 22:29 Glucose 122 mg/dL (70-105) H 08/22/18 22:29 POC Glucose 143 mg/dL (70-99) H 08/22/18 22:11 Calculated Osmolality 277 (280-300) L 10/15/18 22:29 Calcium 7.8 mg/dL (8.6-10.3) L 08/22/18 22:29 Venous Ioniz Calcium 1.13 mmol/L (1.15-1.35) L 08/23/18 00:25 Serum Total Protein 5.2 g/dL (6.4-8.9) L 08/22/18 22:29 Albumin 3.3 g/dL (3.5-5.7) L 08/22/18 22:29 Globulin 1.9 g/dL (2.4-3.5) L 08/22/18 22:29 Urine Protein 30 mg/dL (Neg-Trace) H 08/23/18 00:15 Urine Blood Moderate (Negative) H 08/23/18 00:15 Urine Microscopic RBC 5-15 per hpf (0-3) H 08/23/18 00:15 - Clinical Findings Intake & Output: Intake & Output 08/22/18 08/23/18 08/23/18 23:59 07:59 15:59 Intake Total 100 / 100 1224 / 1224 Output Total 975 / 975 Balance -875 / -875 1224 / 1224 Weight 62.6 kg Consult Discharge Plan - Plan Referrals: Kristin Davis MD [Primary Care Provider] - <Ramya Linares - Last Filed: 08/23/18 15:40> Date of Encounter: 08/23/18 All Systems: The remainder of the systems were reviewed and are negative Physical Examination Vital Signs: Vital Signs, Last 4 Hours Temp Pulse Resp BP Pulse Ox 08/23/18 14:00 69 14 86/53 96 08/23/18 13:00 68 14 87/57 96 08/23/18 12:24 97.8 F 08/23/18 12:00 71 16 88/56 96 Results - Laboratory Findings CBC and BMP: 08/22/18 22:29 08/22/18 22:29 Abnormal lab findings: Abnormal lab results RBC 3.24 M/mcL (3.82-4.97) L 08/22/18 22:29 Hgb 10.6 g/dL (11.5-15.4) L 08/22/18 22:29 Hct 32.3 % (35.3-44.9) L 08/22/18 22:29 MPV 8.7 fL (9.4-12.4) L 08/22/18 22:29 Band Neutrophils % 18.0 % (0-4) H 08/22/18 22:29 Metamyelocytes % 10.0 % (0) H 08/22/18 22:29 Myelocytes % 2.0 % (0) H 08/22/18 22:29 Sodium 133 mEq/L (136-145) L 08/22/18 22:29 Carbon Dioxide 19 mEq/L (23-29) L 08/22/18 22:29 Glucose 122 mg/dL (70-105) H 08/22/18 22:29 POC Glucose 143 mg/dL (70-99) H 08/22/18 22:11 Calculated Osmolality 277 (280-300) L 08/22/18 22:29 Calcium 7.8 mg/dL (8.6-10.3) L 08/22/18 22:29 Venous Ioniz Calcium 1.13 mmol/L (1.15-1.35) L 08/23/18 00:25 Serum Total Protein 5.2 g/dL (6.4-8.9) L 08/22/18 22:29 Albumin 3.3 g/dL (3.5-5.7) L 08/22/18 22:29 Globulin 1.9 g/dL (2.4-3.5) L 08/22/18 22:29 Urine Protein 30 mg/dL (Neg-Trace) H 08/23/18 00:15 Urine Blood Moderate (Negative) H 08/23/18 00:15 Urine Microscopic RBC 5-15 per hpf (0-3) H 08/23/18 00:15 - Clinical Findings Intake & Output: Intake & Output 08/22/18 08/23/18 08/23/18 23:59 07:59 15:59 Intake Total 100 / 100 2483 / 2483 Output Total 975 / 975 300 / 300 Balance -875 / -875 2183 / 2183 Weight 62.6 kg - Attending Attestation I examined this patient and my medical decision-making was reviewed with the Resident Physician. I agree with the documented findings, disposition and treatment plan as described except to the extent set forth below. Patient seen and examined. Labs, radiology, chart personally reviewed. Agree with resident's history and physical, assessment, plan with following comments: TECHNOLOGY INTEGRATION SPECIALIST: Patient follows commands, she is lethargic. Pulmonary: Acceptable oxygenation and ventilation she is protecting her airway. Cardiovascular: Patient remain in shock which his septic in nature and this is from her underlying C. difficile infection. She is being covered with antibiotics and she remains on Levophed and was given her more fluid bolus challenges with partial improvement in her blood pressure. GI: Nutrition per dietary and GI prophylaxis per routine. Even though patient' s WBC is not significantly elevated and her lactic acid is not within normal range to be significantly concerned, however the fact and she started requiring vasopressor even with fluid resuscitation and her previous history of surgery for same condition it is worrisome and for that reason surgery has been consulted for their opinion and we might even need to repeat images of her condition does not improve. Heme: DVT prophylaxis per routine ID: Continue antibiotics and plan to de-escalation. Patient is being covered with antibiotics for C. difficile. Renal; urine out put and renal funtion reviewed Endorcine: blood glucose is monitored Lines: all lines checked and no evidence of infections Skin: skin care to prevent pressure ulcers per nursing routine care I spent 35 min of Critical Care time with this patient. It involved decision making of high complexity to assess, manipulate, and support vital organ system failure and/or to prevent further life threatening deterioration of the patient' s condition. The time involved in the performance of separately reportable procedures was not counted toward critical care time.
[2018-08-23] MEDS: Vancomycin Oral Soln 125 MG/2.5 ML UDC PO SCH ×4 (09:23→20:42)
[2018-08-23] MEDS: Nicotine 14 MG PATCH.TD24 TD SCH (14:30)
--- NOTE | 2018-08-23 16:36 | General Surgery Consult Note ---
<Eveline Valles M - Last Filed: 08/23/18 18:07> Date of Encounter: 08/23/18 Time of Encounter: 16:29 Assessment and Plan (1) Enteritis due to Clostridium difficile Current Visit: Yes Status: Acute C diff enteritis with no evidence of necrosis; After review of her CT abd from [facility] it is unlikely she has any significant amount of colon to allow for possibility of surgical resection. The site of anastamosis of small bowel and rectum can be seen on CT. There is no indication of necrosis of the small bowel as the dilation seen is an expected post surgical change and not pathologic - agree with oral vanc - agree with need for ICU care - no surgical intervention planned History of Present Illness Consult date: 08/23/18 Reason for consult: abdominal pain Requesting physician: Harjit Pickering History of present illness: 53 y/o female with history of colostomy with diverting ileostomy presented with abdominal pain and diarrhea - ICU team has concern for severe recurrent c dif infection as cause of her septic shock. She is currently on one pressor with a BP of 86/53. She has had recent antibiotic exposure in amoxicillin to treat a URI three weeks ago. About two days after starting antibiotic began having explosive diarrhea approximately 15 times a day. She was seen in an outside ER and treated with oral vanco with some improvement. On Wednesday family found her at home alone passed out and very ill thus brought her to [facility]. In 2012 at [facility] underwent a colectomy with diverting ileostomy for treatment of post surgical ileus followed by a reversal in 2013 thus leaving her with small bowel connected to a minimal remaining portion of colon at the rectum. Surgical history included multiple abdominal surgeries including hysterectomy and hernia repair. At baseline she has 0-3 loose bowel movements a day, although her stool is never formed she has adapted to develop continence. Past Med Surg Social Fam HX - Past Medical History Medical history: hyperlipidemia, seizures Additional medical history: C. difficile Psychiatric history: anxiety - Past Surgical History Surgical History: appendectomy, , colectomy Additional surgical history: bowel resection - Social History Smoking Status: Current every day smoker Smokeless Tobacco Status: No Alcohol use: occasionally Drug use: marijuana - Family History Mother Hx Family Endocrine Disorder: Yes (Diabetes) Medications and Allergies Gabapentin [Neurontin] 300 - 600 mg PO HS 05/23/18 [History] Lovastatin 40 mg PO DAILY 03/30/18 [History] Tizanidine HCl 2 - 4 mg PO TID PRN 03/30/18 [History] diazePAM [Valium] 5 mg PO TID 03/30/18 [History] levETIRAcetam [Keppra] 500 mg PO BID 03/30/18 [History] Acetaminophen [Tylenol] 650 mg PO Q6HR PRN 7 Days #56 tablet 04/01/18 [Rx] 3 Allergy/AdvReac Type Severity Reaction Status Date / Time atorvastatin [From Lipitor] Allergy See Verified 08/23/18 18:41 Comments baclofen Allergy See Verified 08/23/18 18:41 Comments doxycycline Allergy Blister Verified 08/23/18 18:41 levofloxacin [From Levaquin] Allergy See Verified 08/23/18 18:41 Comments meloxicam [From Mobic] Allergy See Verified 08/23/18 18:41 Comments sertraline [From Zoloft] Allergy See Verified 08/23/18 18:41 Comments Review of Systems All systems PM: The remainder of the systems were reviewed and are negative - Constitutional fatigue, fever(s) - Cardiovascular dyspnea on exertion, no chest pain, no irregular heart rhythm, no palpitations - Respiratory cough, dyspnea, wheezing - Gastrointestinal abdominal pain, cramping, diarrhea, nausea, no constipation - Genitourinary Genitourinary: urinary hesitancy, no dysuria - Neurological dizziness, no syncope General Surgery Exam Initial Vital Signs Temp Pulse Resp BP Pulse Ox 98.2 F 67 16 87/60 96 08/22/18 22:00 08/22/18 22:00 08/22/18 22:00 08/22/18 22:00 08/22/18 22:00 - General physical appearance well nourished, moderate distress, chronically ill - Eyes normal ocular movement - ENT normal pinna, normal nares, no hearing loss - Respiratory normal expansion, normal respiratory effort wheezing: bilateral - Cardiovascular Cardiovascular exam: Present: RRR, no murmurs/rubs/gallops - Abdomen Abdomen general surgery: Present: bowel sounds present (hyperactive), soft, distended, surgical scars. Absent: scaphoid, tympanic, guarding, rebound Abdominal Tenderness: Present: diffusely Hernia: Present: none - Integumentary Integumentary general surgery: Present: warm and dry, no abnormal pigmentation. Absent: diaphoresis - Neurologic Present: CN 2-12 grossly intact, normal coordination, normal sensation - Musculoskeletal Present: normal gait, normal posture - Psychiatric Psychiatric general surgery: Present: A&Ox3, speech is normal, memory intact ( poor historian), other (anxious) Exam Initial Vital Signs Temp Pulse Resp BP Pulse Ox 98.2 F 67 16 87/60 96 08/22/18 22:00 08/22/18 22:00 08/22/18 22:00 08/22/18 22:00 08/22/18 22:00 Results - Labs 08/22/18 22:29 08/23/18 15:45 Abnormal lab results RBC 3.24 M/mcL (3.82-4.97) L 08/22/18 22:29 Hgb 10.6 g/dL (11.5-15.4) L 08/22/18 22: Hct 32.3 % (35.3-44.9) L 08/22/18 22:29 MPV 8.7 fL (9.4-12.4) L 08/22/18 22:29 Band Neutrophils % 18.0 % (0-4) H 08/22/18 22:29 Metamyelocytes % 10.0 % (0) H 08/22/18 22: Myelocytes % 2.0 % (0) H 08/22/18 22:29 Sodium 133 mEq/L (136-145) L 08/22/18 22:29 Carbon Dioxide 19 mEq/L (23-29) L 08/22/18 22:29 Glucose 122 mg/dL (70-105) H 08/22/18 22:29 POC Glucose 143 mg/dL (70-99) H 08/22/18 22:11 Calculated Osmolality 277 (280-300) L 08/22/18 22: Calcium 7.8 mg/dL (8.6-10.3) L 08/22/18 22:29 Venous Ioniz Calcium 1.13 mmol/L (1.15-1.35) L 08/23/18 00:25 Serum Total Protein 5.2 g/dL (6.4-8.9) L 08/22/18 22: Albumin 3.3 g/dL (3.5-5.7) L 08/22/18 22:29 Globulin 1.9 g/dL (2.4-3.5) L 08/22/18 22:29 Urine Protein 30 mg/dL (Neg-Trace) H 08/23/18 00:15 Urine Blood Moderate (Negative) H 08/23/18 00:15 Urine Microscopic RBC 5-15 per hpf (0-3) H 08/23/18 00:15 Diabetes panel 08/22/18 Range/Units 22:29 Sodium 133 L (136-145) mEq/L Potassium 3.6 (3.5-5.1) mEq/L Chloride 107 (98-107) mEq/L Carbon Dioxide 19 L (23-29) mEq/L BUN 13 (6-20) mg/dL Creatinine 0.84 (0.60-1.20) mg/dL Glucose 122 H (70-105) mg/dL Calcium 7.8 L (8.6-10.3) mg/dL AST 19 (13-39) Units/L ALT 46 (7-52) Units/L Alkaline Phosphatase 90 (34-104) Units/L Albumin 3.3 L (3.5-5.7) g/dL Calcium panel 08/22/18 08/22/18 Range/Units 22:29 22:29 Calcium 7.8 L (8.6-10.3) mg/dL Phosphorus 3.0 (2.7-4.5) mg/dL Albumin 3.3 L (3.5-5.7) g/dL Pituitary panel 08/22/18 Range/Units 22:29 Sodium 133 L (136-145) mEq/L Potassium 3.6 (3.5-5.1) mEq/L Chloride 107 (98-107) mEq/L Carbon Dioxide 19 L (23-29) mEq/L BUN 13 (6-20) mg/dL Creatinine 0.84 (0.60-1.20) mg/dL Glucose 122 H (70-105) mg/dL Calcium 7.8 L (8.6-10.3) mg/dL Adrenal panel 08/22/18 Range/Units 22:29 Sodium 133 L (136-145) mEq/L Potassium 3.6 (3.5-5.1) mEq/L Chloride 107 (98-107) mEq/L Carbon Dioxide 19 L (23-29) mEq/L BUN 13 (6-20) mg/dL Creatinine 0.84 (0.60-1.20) mg/dL Glucose 122 H (70-105) mg/dL Calcium 7.8 L (8.6-10.3) mg/dL Total Bilirubin 0.7 (0.3-1.0) mg/dL AST 19 (13-39) Units/L ALT 46 (7-52) Units/L Alkaline Phosphatase 90 (34-104) Units/L Albumin 3.3 L (3.5-5.7) g/dL All other labs normal. Consult Discharge Plan - Plan Referrals: Kristin Davis MD [Primary Care Provider] - <Bhavik Loredo - Last Filed: 08/23/18 22:20> Date of Encounter: 08/23/18 Review of Systems All systems PM: The remainder of the systems were reviewed and are negative General Surgery Exam Initial Vital Signs Temp Pulse Resp BP Pulse Ox 98.2 F 67 16 87/60 96 08/22/18 22:00 08/22/18 22:00 08/22/18 22:00 08/22/18 22:00 08/22/18 22:00 Exam Initial Vital Signs Temp Pulse Resp BP Pulse Ox 98.2 F 67 16 87/60 96 08/22/18 22:00 08/22/18 22:00 08/22/18 22:00 08/22/18 22:00 08/22/18 22:00 Results - Labs 08/22/18 22:29 08/23/18 15:45 Abnormal lab results RBC 3.24 M/mcL (3.82-4.97) L 08/22/18 22:29 Hgb 10.6 g/dL (11.5-15.4) L 08/22/18 22:29 Hct 32.3 % (35.3-44.9) L 08/22/18 22:29 MPV 8.7 fL (9.4-12.4) L 08/22/18 22:29 Band Neutrophils % 18.0 % (0-4) H 08/22/18 22:29 Metamyelocytes % 10.0 % (0) H 08/22/18 22:29 Myelocytes % 2.0 % (0) H 08/22/18 22:29 Sodium 133 mEq/L (136-145) L 08/22/18 22:29 Carbon Dioxide 19 mEq/L (23-29) L 08/22/18 22:29 Glucose 122 mg/dL (70-105) H 08/22/18 22:29 POC Glucose 143 mg/dL (70-99) H 08/22/18 22:11 Calculated Osmolality 277 (280-300) L 08/22/18 22:29 Calcium 7.8 mg/dL (8.6-10.3) L 08/22/18 22:29 Venous Ioniz Calcium 1.13 mmol/L (1.15-1.35) L 08/23/18 00:25 Serum Total Protein 5.2 g/dL (6.4-8.9) L 08/22/18 22:29 Albumin 3.3 g/dL (3.5-5.7) L 08/22/18 22:29 Globulin 1.9 g/dL (2.4-3.5) L 08/22/18 22:29 Urine Protein 30 mg/dL (Neg-Trace) H 08/23/18 00:15 Urine Blood Moderate (Negative) H 08/23/18 00:15 Urine Microscopic RBC 5-15 per hpf (0-3) H 08/23/18 00:15 Diabetes panel 08/22/18 08/23/18 Range/Units 22:29 15:45 Sodium 133 L (136-145) mEq/L Potassium 3.6 4.1 (3.5-5.1) mEq/L Chloride 107 (98-107) mEq/L Carbon Dioxide 19 L (23-29) mEq/L BUN 13 (6-20) mg/dL Creatinine 0.84 (0.60-1.20) mg/dL Glucose 122 H (70-105) mg/dL Calcium 7.8 L (8.6-10.3) mg/dL AST 19 (13-39) Units/L ALT 46 (7-52) Units/L Alkaline Phosphatase 90 (34-104) Units/L Albumin 3.3 L (3.5-5.7) g/dL Calcium panel 08/22/18 08/22/18 Range/Units 22:29 22:29 Calcium 7.8 L (8.6-10.3) mg/dL Phosphorus 3.0 (2.7-4.5) mg/dL Albumin 3.3 L (3.5-5.7) g/dL Pituitary panel 08/22/18 08/23/18 Range/Units 22:29 15:45 Sodium 133 L (136-145) mEq/L Potassium 3.6 4.1 (3.5-5.1) mEq/L Chloride 107 (98-107) mEq/L Carbon Dioxide 19 L (23-29) mEq/L BUN 13 (6-20) mg/dL Creatinine 0.84 (0.60-1.20) mg/dL Glucose 122 H (70-105) mg/dL Calcium 7.8 L (8.6-10.3) mg/dL Adrenal panel 08/22/18 08/23/18 Range/Units 22:29 15:45 Sodium 133 L (136-145) mEq/L Potassium 3.6 4.1 (3.5-5.1) mEq/L Chloride 107 (98-107) mEq/L Carbon Dioxide 19 L (23-29) mEq/L BUN 13 (6-20) mg/dL Creatinine 0.84 (0.60-1.20) mg/dL Glucose 122 H (70-105) mg/dL Calcium 7.8 L (8.6-10.3) mg/dL Total Bilirubin 0.7 (0.3-1.0) mg/dL AST 19 (13-39) Units/L ALT 46 (7-52) Units/L Alkaline Phosphatase 90 (34-104) Units/L Albumin 3.3 L (3.5-5.7) g/dL All other labs normal. - Attending Attestation I examined this patient and my medical decision-making was reviewed with the Resident Physician. I agree with the documented findings, disposition and treatment plan as described except to the extent set forth below. The patient is seen and evaluated with the resident in the intensive care unit. I interviewed the patient and obtained a surgical history. She had subtotal abdominal colectomy for toxic megacolon in 2012. She subsequently had a reversal of her ileostomy. She now presented with several days of severe abdominal pain and diarrhea. She is being treated in the intensive care unit for sepsis. I personally reviewed the CAT scan of the abdomen. She has findings consistent with distal enteritis. The mucosa of the distal ileum was somewhat thickened. Because of her previous ileorectal anastomosis, I expect the distal ileum to be dilated. There is no evidence of pneumatosis in the bowel wall. The rectum was not dilated. I agree with aggressive medical therapy. There is no role for surgery at this time Bhavik Loredo MD FACS
[2018-08-23] MEDS ORDERED: Acetaminophen 325 MG TABLET PO ONE (17:05)
[2018-08-23 17:30] LABS: Potassium 4.1 mEq/L (3.5-5.1)
[2018-08-23] MEDS: Gabapentin 300 MG CAPSULE PO SCH (20:43)
[2018-08-23] MEDS: Norepinephrine 4 MG in D5% in Water 250 ML IVC SCH (23:16)
[2018-08-24] MEDS: Acetaminophen 325 MG TABLET PO PRN ×2 (00:26→08:24)
[2018-08-24] MEDS: Ringers Solution, Lactated 1,000 ML IVC SCH ×2 (00:27→08:23)
[2018-08-24 04:26] LABS: Basophils # 0.1 K/mcL (0.0-0.2); Basophils % 0.5 %; Eosinophils # 0.3 K/mcL (0.0-0.6); Hematocrit 31.9 % (35.3-44.9); Hemoglobin 10.2 g/dL (11.5-15.4); Immature Granulocytes % 0.5 % (0-4); Lymphocytes # 2.2 K/mcL (0.6-4.6); Lymphocytes % 22.8 %; Mean Corpuscular Hemoglobin 32.1 pg (28.0-33.3); Mean Corpuscular Volume 100.3 fL (83.0-100.0); Mean Platelet Volume 8.9 fL (9.4-12.4); Monocytes # 0.7 K/mcL (0.0-1.3); Monocytes % 7.4 %; Neutrophils # 6.3 K/mcL (1.6-8.9); Platelet Count 320 K/mcL (140-400); Red Blood Count 3.18 M/mcL (3.82-4.97); Red Cell Distribution Width 12.6 % (11.5-14.5); Segmented Neutrophils % 65.8 %
[2018-08-24 04:44] LABS: BUN/Creatinine Ratio 7 (6-26); Blood Urea Nitrogen 3 mg/dL (6-20); Calcium 8.3 mg/dL (8.6-10.3); Carbon Dioxide 26 mEq/L (23-29); Chloride 110 mEq/L (98-107); Glucose 97 mg/dL (70-105); Osmolality,Calculated 286 (280-300); Potassium 3.8 mEq/L (3.5-5.1); Sodium 140 mEq/L (136-145); eGFR For Non-African Americans > 60 (> 60)
[2018-08-24 05:02] LABS: Large Platelets Present (Not Present); Macrocytosis Present (Not Present); Platelet Estimate Normal (Normal)
[2018-08-24 05:18] LABS: Magnesium 1.9 mg/dL (1.6-2.6); Phosphorous 2.4 mg/dL (2.7-4.5)
[2018-08-24] MEDS: Potassium Chloride 40 MEQ/200 ML BAG IVPB PRN (05:34)
[2018-08-24] MEDS: *HR* Heparin 5,000 UNIT/ML VIAL SQ SCH ×3 (05:37→21:17)
[2018-08-24 06:22] LABS: VBG Ionized Calcium 1.22 mmol/L (1.15-1.35)
[2018-08-24] MEDS: Vancomycin Oral Soln 125 MG/2.5 ML UDC PO SCH ×4 (08:20→20:34)
[2018-08-24] MEDS ORDERED: Ringers Solution, Lactated 500 ML IVC ONE (08:22)
[2018-08-24] MEDS: Nicotine 14 MG PATCH.TD24 TD SCH (08:22)
[2018-08-24] MEDS: MetroNIDAZOLE 500 MG/100 ML 500 MG/100 ML BAG IVPB SCH (08:22)
[2018-08-24] MEDS: levETIRAcetam 250 MG TABLET PO SCH ×2 (08:24→20:33)
[2018-08-24] MEDS: diazePAM 2 MG TABLET PO SCH ×2 (08:24→20:33)
[2018-08-24] MEDS ORDERED: SUMAtriptan succinate 25 MG TABLET PO ONE (08:36)
--- NOTE | 2018-08-24 10:05 | General Surgery Progress Note ---
<Eveline Valles - Last Filed: 08/24/18 18:14> Date of Encounter: 08/24/18 Time of Encounter: 09:51 - Assessment and Plan (1) Enteritis due to Clostridium difficile Current Visit: Yes Status: Acute Recurrent c dif infection after failed out patient treatment with hx of a iliorectal anastomosis after colectomy due to post surgical ileus at outside hospital in 2013. Thus leaving her with minimal length of colon mostly made up of rectum. Infection likely extends to small bowel but expect dilations proximal to anastomosis as a non pathologic radiographic finding - transfer out of ICU per primary team - diet per primary team - serial abdominal exams - supportive care and pain management - continue medical therapy with antibiotic - no surgical intervention indicated Surgery will continue to follow Subjective Patient reports: still having pain (headache is worse pain), bowel movement, na usea Objective Vital Signs - Last 8 Hours Temp Pulse Resp BP Pulse Ox 08/24/18 09:00 78 15 125/86 92 08/24/18 08:50 97.8 F 08/24/18 08:00 75 16 144/79 95 08/24/18 07:00 76 16 127/79 96 08/24/18 06:00 75 18 118/76 96 08/24/18 05:00 75 20 111/68 93 08/24/18 04:15 98.1 F 08/24/18 04:10 75 08/24/18 04:00 77 20 123/78 94 08/24/18 03:00 70 16 104/66 94 08/24/18 02:00 86 20 119/74 94 Intake and Output 08/23/18 08/24/18 08/24/18 23:59 07:59 15:59 Intake Total 1105 / 1105 100 / 100 1000 / 1000 Output Total 400 / 400 1000 / 1000 400 / 400 Balance 705 / 705 -900 / -900 600 / 600 Intake: IV Fluids 1105 / 1105 100 / 100 1000 / 1000 Levophed 4 MG In Dextrose 5% 5 / 5 0 / 0 250 ML @ 8 MCG/MIN 30.48 mls/hr IVC CONT [facility] Rx#:[id number] Lactated Ringers 1,000 ML @ 125 1000 / 1000 1000 / 1000 mls/hr IVC .Q8H [facility] Rx#: [id number] Flagyl Premix 500 MG/100 ML 500 100 / 100 100 / 100 mg In 100 ml @ 100 mls/hr IVPB Q8HR [facility] Rx#:[id number] Output: Catheter 400 / 400 1000 / 1000 400 / 400 Other: Stool Size Small Stool Consistency loose Stool Color Brown Green # Bowel Movements 1 1 Weight 62.459 kg Patient Weight 08/24/18 23:59 Weight 62.459 kg - General physical appearance well developed, well nourished, moderate distress - ENT normal pinna, normal nares, normal mucosa - Respiratory normal expansion, normal respiratory effort, clear to auscultation - Cardiovascular Cardiovascular exam: Present: RRR, no murmurs/rubs/gallops - Abdomen Abdomen: Present: bowel sounds present (hyperactive), soft, distended, guarding, rebound Abdominal Tenderness: diffusely Hernia: none - Integumentary no rash, no growths, no abnormal pigmentation - Neurologic CN 2-12 grossly intact, normal coordination, normal sensation - Musculoskeletal normal gait, normal posture - Psychiatric oriented to time, oriented to person, oriented to place, speech is normal, memory intact - Labs 08/24/18 04:10 08/24/18 04:10 Diabetes panel 08/23/18 08/24/18 Range/Units 15:45 04:10 Sodium 140 (136-145) mEq/L Potassium 4.1 3.8 (3.5-5.1) mEq/L Chloride 110 H (98-107) mEq/L Carbon Dioxide 26 (23-29) mEq/L BUN 3 L (6-20) mg/dL Creatinine 0.45 L (0.60-1.20) mg/dL Glucose 97 (70-105) mg/dL Calcium 8.3 L (8.6-10.3) mg/dL Calcium panel 08/24/18 08/24/18 Range/Units 04:10 04:10 Calcium 8.3 L (8.6-10.3) mg/dL Phosphorus 2.4 L (2.7-4.5) mg/dL Pituitary panel 08/23/18 08/24/18 Range/Units 15:45 04:10 Sodium 140 (136-145) mEq/L Potassium 4.1 3.8 (3.5-5.1) mEq/L Chloride 110 H (98-107) mEq/L Carbon Dioxide 26 (23-29) mEq/L BUN 3 L (6-20) mg/dL Creatinine 0.45 L (0.60-1.20) mg/dL Glucose 97 (70-105) mg/dL Calcium 8.3 L (8.6-10.3) mg/dL Adrenal panel 08/23/18 08/24/18 Range/Units 15:45 04:10 Sodium 140 (136-145) mEq/L Potassium 4.1 3.8 (3.5-5.1) mEq/L Chloride 110 H (98-107) mEq/L Carbon Dioxide 26 (23-29) mEq/L BUN 3 L (6-20) mg/dL Creatinine 0.45 L (0.60-1.20) mg/dL Glucose 97 (70-105) mg/dL Calcium 8.3 L (8.6-10.3) mg/dL Consult Discharge Plan - Plan Referrals: Kristin Davis MD [Primary Care Provider] - <Bhavik Loredo - Last Filed: 08/25/18 16:46> Objective Vital Signs - Last 8 Hours Temp Pulse Resp BP Pulse Ox 08/25/18 15:57 98.3 F 65 15 157/83 91 Intake and Output 08/25/18 08/25/18 08/25/18 07:59 15:59 23:59 Intake Total 0 / 0 240 / 240 Output Total 800 / 800 Balance 0 / 0 -560 / -560 Intake: Oral 0 / 0 240 / 240 Output: Urine 800 / 800 Other: Meal Lunch Percent of Meal Consumed 90% # Voids 1 - Labs 08/25/18 11:35 08/25/18 11:35 Diabetes panel 08/25/18 Range/Units 11:35 Sodium 141 (136-145) mEq/L Potassium 3.2 L (3.5-5.1) mEq/L Chloride 102 (98-107) mEq/L Carbon Dioxide 30 H (23-29) mEq/L BUN 2 L (6-20) mg/dL Creatinine 0.58 L (0.60-1.20) mg/dL Glucose 87 (70-105) mg/dL Calcium 8.6 (8.6-10.3) mg/dL Calcium panel 08/25/18 Range/Units 11:35 Calcium 8.6 (8.6-10.3) mg/dL Pituitary panel 08/25/18 Range/Units 11:35 Sodium 141 (136-145) mEq/L Potassium 3.2 L (3.5-5.1) mEq/L Chloride 102 (98-107) mEq/L Carbon Dioxide 30 H (23-29) mEq/L BUN 2 L (6-20) mg/dL Creatinine 0.58 L (0.60-1.20) mg/dL Glucose 87 (70-105) mg/dL Calcium 8.6 (8.6-10.3) mg/dL Adrenal panel 08/25/18 Range/Units 11:35 Sodium 141 (136-145) mEq/L Potassium 3.2 L (3.5-5.1) mEq/L Chloride 102 (98-107) mEq/L Carbon Dioxide 30 H (23-29) mEq/L BUN 2 L (6-20) mg/dL Creatinine 0.58 L (0.60-1.20) mg/dL Glucose 87 (70-105) mg/dL Calcium 8.6 (8.6-10.3) mg/dL - Attending Attestation I examined this patient and my medical decision-making was reviewed with the Resident Physician. I agree with the documented findings, disposition and treatment plan as described except to the extent set forth below. The patient is seen and evaluated on morning rounds with the resident. She is doing quite well. She has Clostridium seal enteritis that is responding to medical therapy. Bhavik Loredo MD FACS
--- NOTE | 2018-08-24 10:45 | Pulmonology Progress Note ---
<Bryan Linaresisaías M - Last Filed: 08/24/18 13:48> Date of Encounter: 08/24/18 Objective PUL Vital signs: Last Vital Signs Temp 97.8 F 08/24/18 08:50 Pulse 76 08/24/18 12:00 Resp 14 08/24/18 12:00 BP 130/92 08/24/18 12:00 Pulse Ox 98 08/24/18 12:00 Results - Laboratory Findings CBC and BMP: 08/24/18 04:10 08/24/18 04:10 Abnormal lab findings: Abnormal lab results RBC 3.18 M/mcL (3.82-4.97) L 08/24/18 04:10 Hgb 10.2 g/dL (11.5-15.4) L 08/24/18 04:10 Hct 31.9 % (35.3-44.9) L 08/24/18 04:10 MCV 100.3 fL (83.0-100.0) H 08/24/18 04:10 MPV 8.9 fL (9.4-12.4) L 08/24/18 04:10 Band Neutrophils % 18.0 % (0-4) H 08/22/18 22:29 Metamyelocytes % 10.0 % (0) H 08/22/18 22:29 Myelocytes % 2.0 % (0) H 08/22/18 22:29 Large Platelets Present (Not Present) A 08/24/18 04:10 Macrocytosis Present (Not Present) A 08/24/18 04:10 Chloride 110 mEq/L (98-107) H 08/24/18 04:10 BUN 3 mg/dL (6-20) L 08/24/18 04:10 Creatinine 0.45 mg/dL (0.60-1.20) L 08/24/18 04:10 POC Glucose 143 mg/dL (70-99) H 08/22/18 22:11 Calcium 8.3 mg/dL (8.6-10.3) L 08/24/18 04:10 Phosphorus 2.4 mg/dL (2.7-4.5) L 08/24/18 04:10 Serum Total Protein 5.2 g/dL (6.4-8.9) L 08/22/18 22:29 Albumin 3.3 g/dL (3.5-5.7) L 08/22/18 22:29 Globulin 1.9 g/dL (2.4-3.5) L 08/22/18 22:29 Urine Protein 30 mg/dL (Neg-Trace) H 08/23/18 00:15 Urine Blood Moderate (Negative) H 08/23/18 00:15 Urine Microscopic RBC 5-15 per hpf (0-3) H 08/23/18 00:15 - Clinical Findings Intake & Output: Intake & Output 08/23/18 08/24/18 08/24/18 23:59 07:59 15:59 Intake Total 1105 / 1105 100 / 100 1000 / 1000 Output Total 400 / 400 1000 / 1000 400 / 400 Balance 705 / 705 -900 / -900 600 / 600 Weight 62.459 kg Consult Discharge Plan - Plan Referrals: Kristin Davis MD [Primary Care Provider] - - Attending Attestation I examined this patient and my medical decision-making was reviewed with the Resident Physician. I agree with the documented findings, disposition and treatment plan as described except to the extent set forth below. Patient seen and examined. Labs, radiology, chart personally reviewed. Agree with resident's history and physical, assessment, plan with following comments: WEB ENGINEER: Patient follows commands, Pulmonary: Acceptable oxygenation and ventilation Cardiovascular: stable and will give her another bolus of IV fluid before trans ferred to the floor. GI: Nutrition per dietary and GI prophylaxis per routine. Discussed with Dr. Donna barrientos and appreciate their input. Patient is not surgical candidate. Heme: DVT prophylaxis per routine ID: Continue antibiotics and plan to de-escalation Renal; urine out put and renal funtion reviewed Endorcine: blood glucose is monitored Lines: all lines checked and no evidence of infections Skin: skin care to prevent pressure ulcers per nursing routine care <Harjit Pickering - Last Filed: 08/24/18 15:41> Date of Encounter: 08/24/18 Time of Encounter: 11:37 Assessment and Plan (1) Septic shock Current Visit: Yes Status: Acute Patient is currently afebrile, non-tachycardic, nontachypneic, and without leukocytosis. Patient was weaned from Levophed at 4:30 AM on 08/27/2018-blood pressures have remained stable and are currently at 125/86. (2) Clostridium difficile colitis Current Visit: Yes Status: Acute Patient has recurrent Clostridium difficile infection Initial infection was in 2012 which resulted in colectomy with reversal in 2013 Current infection is likely secondary to the use of amoxicillin to treat upper respiratory infection Abdominal imaging shows C. difficile enteritis-nonsurgical abdomen DC IV Flagyl. Continue oral vancomycin. (3) History of seizures Current Visit: Yes Status: Acute Patient has a history of adult onset epilepsy We will continue home dose of Keppra Gabapentin for neuropathic pain 2 mg diazepam twice a day for anxiety-we will monitor for signs of withdrawal as home dose is 5 mg 3 times a day (4) History of hyperlipidemia Current Visit: Yes Status: Acute Continue atorvastatin (5) DVT prophylaxis Current Visit: Yes Status: Acute 5000 units subcutaneous since heparin 3 times a day Subjective Principal diagnosis: Clostridium difficile colitis Interval history: Patient is a 53-year-old female who presents from to [facility] ICU from [facility] with the chief complaint of diarrhea. The patient has a positive history of recurrent Clostridium difficile infection which began in 2012 which resulted in colectomy with diverting ileostomy, which was reversed in 2013. Patient was treated in July 2018 for upper respiratory infection with amoxicillin 6 days and developed profuse diarrhea and was diagnosed with C. difficile infection. Patient was then started on 10 days of oral vancomycin beginning August 08. Her diarrhea subsequently improved and she began to form solid stools. However once the regimen was completed she began to develop multiple bouts of diarrhea and vomiting which led to her becoming lethargic. Patient presented to [facility] with hypotension and was unresponsive. A right femoral line was placed and the patient was started on Levophed and received a 4 L IV fluid bolus. Based on CT results as well as KUB x-rays, Gen. surgery was consulted for concern over C. difficile enteritis. After reviewing imaging, and visiting the patient surgery advised the patient is not a surgical candidate at this time. Medical therapy was continued and it was discovered that the patient had been taking home tizanidine as well as Valium while under hospital care. These medications were stopped and the patient's blood pressure has responded appropriately. Current plan of care to discharge patient to ICU stepdown 2 North as a bed becomes available. Objective PUL Vital signs: Last Vital Signs Temp 97.8 F 08/24/18 08:50 Pulse 78 08/24/18 09:00 Resp 15 08/24/18 09:00 BP 125/86 08/24/18 09:00 Pulse Ox 92 08/24/18 09:00 General appearance: no acute distress, alert Eyes: nonicteric ENT: oropharynx moist Effort: normal Auscultation: bilateral: clear Cardiovascular: regular rate and rhythm Gastrointestinal: normoactive bowel sounds, soft, non-tender, non-distended Extremities: no cyanosis, no edema normal mental status, non-focal exam Results - Laboratory Findings CBC and BMP: 08/24/18 04:10 08/24/18 04:10 Abnormal lab findings: Abnormal lab results RBC 3.18 M/mcL (3.82-4.97) L 08/24/18 04:10 Hgb 10.2 g/dL (11.5-15.4) L 08/24/18 04:10 Hct 31.9 % (35.3-44.9) L 08/24/18 04:10 MCV 100.3 fL (83.0-100.0) H 08/24/18 04:10 MPV 8.9 fL (9.4-12.4) L 08/24/18 04:10 Band Neutrophils % 18.0 % (0-4) H 08/22/18 22:29 Metamyelocytes % 10.0 % (0) H 08/22/18 22:29 Myelocytes % 2.0 % (0) H 08/22/18 22:29 Large Platelets Present (Not Present) A 08/24/18 04:10 Macrocytosis Present (Not Present) A 08/24/18 04:10 Chloride 110 mEq/L (98-107) H 08/24/18 04:10 BUN 3 mg/dL (6-20) L 08/24/18 04:10 Creatinine 0.45 mg/dL (0.60-1.20) L 08/24/18 04:10 POC Glucose 143 mg/dL (70-99) H 08/22/18 22:11 Calcium 8.3 mg/dL (8.6-10.3) L 08/24/18 04:10 Phosphorus 2.4 mg/dL (2.7-4.5) L 08/24/18 04:10 Serum Total Protein 5.2 g/dL (6.4-8.9) L 08/22/18 22:29 Albumin 3.3 g/dL (3.5-5.7) L 08/22/18 22:29 Globulin 1.9 g/dL (2.4-3.5) L 08/22/18 22:29 Urine Protein 30 mg/dL (Neg-Trace) H 08/23/18 00:15 Urine Blood Moderate (Negative) H 08/23/18 00:15 Urine Microscopic RBC 5-15 per hpf (0-3) H 08/23/18 00:15 - Clinical Findings Intake & Output: Intake & Output 08/23/18 08/24/18 08/24/18 23:59 07:59 15:59 Intake Total 1105 / 1105 100 / 100 1000 / 1000 Output Total 400 / 400 1000 / 1000 400 / 400 Balance 705 / 705 -900 / -900 600 / 600 Weight 62.459 kg
[2018-08-24] MEDS ORDERED: tiZANidine 4 MG TABLET PO PRN (13:24)
[2018-08-24] MEDS ORDERED: Ringers Solution, Lactated 1,000 ML IVC SCH (14:53)
[2018-08-24] MEDS ORDERED: Acetaminophen 325 MG TABLET PO PRN (14:53)
[2018-08-24] MEDS ORDERED: Naloxone 0.4 MG/ML INJ IVP PRN (14:53)
[2018-08-24] MEDS: Gabapentin 300 MG CAPSULE PO SCH (20:33)
[2018-08-25] MEDS ORDERED: Ketorolac 15 MG/ML VIAL ONE (02:12)
[2018-08-25] MEDS ORDERED: Ketorolac 30 MG/ML VIAL ONE (08:45)
[2018-08-25] MEDS ORDERED: D5% in 0.45% NACL 1,000 ML IVC ONE (10:26)
[2018-08-25] MEDS ORDERED: Vancomycin Oral Soln 125 MG/2.5 ML UDC PO ONE (10:59)
[2018-08-25] MEDS ORDERED: Nicotine 14 MG PATCH.TD24 TD ONE (10:59)
[2018-08-25] MEDS ORDERED: levETIRAcetam 250 MG TABLET PO ONE (10:59)
[2018-08-25] MEDS ORDERED: *HR* Heparin 5,000 UNIT/ML VIAL IVP ONE (10:59)
[2018-08-25] MEDS ORDERED: Ketorolac 15 MG/ML VIAL IVP ONE (10:59)
[2018-08-25] MEDS ORDERED: D5% in 0.45% NACL 1000 ML IV SOLUTION IVC ONE (10:59)
[2018-08-25] MEDS ORDERED: diazePAM 2 MG TABLET PO ONE (10:59)
[2018-08-25] MEDS: *HR* Heparin 5,000 UNIT/ML VIAL SQ SCH ×3 (12:05→20:10)
[2018-08-25] MEDS: levETIRAcetam 250 MG TABLET PO SCH ×2 (12:06→20:10)
[2018-08-25] MEDS: diazePAM 2 MG TABLET PO SCH ×2 (12:06→20:10)
[2018-08-25] MEDS: Nicotine 14 MG PATCH.TD24 TD SCH (12:06)
[2018-08-25] MEDS: Vancomycin Oral Soln 125 MG/2.5 ML UDC PO SCH ×4 (12:06→20:21)
[2018-08-25 12:20] LABS: Basophils % 0.4 %; Eosinophils # 0.3 K/mcL (0.0-0.6); Eosinophils % 3.7 %; Hematocrit 34.7 % (35.3-44.9); Hemoglobin 11.4 g/dL (11.5-15.4); Immature Granulocytes % 0.5 % (0-4); Immature Platelets 2.2 % (1.1-6.1); Lymphocytes # 2.4 K/mcL (0.6-4.6); Lymphocytes % 29.9 %; Mean Corpuscular HGB Conc 32.9 g/dL (31.6-35.5); Mean Corpuscular Hemoglobin 31.8 pg (28.0-33.3); Mean Corpuscular Volume 96.9 fL (83.0-100.0); Mean Platelet Volume 9.2 fL (9.4-12.4); Monocytes # 0.5 K/mcL (0.0-1.3); Monocytes % 6.5 %; Neutrophils # 4.8 K/mcL (1.6-8.9); Platelet Count 388 K/mcL (140-400); Red Blood Count 3.58 M/mcL (3.82-4.97); Red Cell Distribution Width 12.5 % (11.5-14.5)
[2018-08-25 12:35] LABS: BUN/Creatinine Ratio 3 (6-26); Blood Urea Nitrogen 2 mg/dL (6-20); Calcium 8.6 mg/dL (8.6-10.3); Carbon Dioxide 30 mEq/L (23-29); Chloride 102 mEq/L (98-107); Glucose 87 mg/dL (70-105); Osmolality,Calculated 288 (280-300); Potassium 3.2 mEq/L (3.5-5.1); Sodium 141 mEq/L (136-145); eGFR For Non-African Americans > 60 (> 60)
[2018-08-25] MEDS: D5% in 0.45% NACL 1,000 ML IVC SCH (13:04)
[2018-08-25] MEDS: Ketorolac 15 MG/ML VIAL IVP PRN ×2 (15:23→21:30)
--- NOTE | 2018-08-25 15:33 | Event Note ---
Date of Encounter: 08/25/18 Time of Encounter: 15:31 Please see hard copy for surgery progress note. Surgery will sign off at this time as no indication for surgical intervention. Please call with questions.
[2018-08-25] MEDS: Gabapentin 300 MG CAPSULE PO SCH (20:09)
[2018-08-26] MEDS: D5% in 0.45% NACL 1,000 ML IVC SCH ×2 (02:35→19:01)
[2018-08-26 04:31] LABS: BUN/Creatinine Ratio 4 (6-26); Blood Urea Nitrogen 2 mg/dL (6-20); Calcium 8.7 mg/dL (8.6-10.3); Carbon Dioxide 29 mEq/L (23-29); Chloride 105 mEq/L (98-107); Glucose 105 mg/dL (70-105); Osmolality,Calculated 289 (280-300); Potassium 3.8 mEq/L (3.5-5.1); Sodium 141 mEq/L (136-145); eGFR For Non-African Americans > 60 (> 60)
[2018-08-26] MEDS: *HR* Heparin 5,000 UNIT/ML VIAL SQ SCH ×3 (05:49→20:58)
[2018-08-26] MEDS: diazePAM 2 MG TABLET PO SCH ×2 (09:16→20:57)
[2018-08-26] MEDS: levETIRAcetam 250 MG TABLET PO SCH ×2 (09:16→20:57)
[2018-08-26] MEDS: Nicotine 14 MG PATCH.TD24 TD SCH (09:18)
[2018-08-26] MEDS: Ketorolac 15 MG/ML VIAL IVP PRN ×3 (09:18→22:40)
[2018-08-26] MEDS: Vancomycin Oral Soln 125 MG/2.5 ML UDC PO SCH ×4 (09:26→20:59)
--- NOTE | 2018-08-26 11:33 | Internal Med Progress Note ---
Hospitalist Progress Note - Encounter Date of Encounter: 08/26/18 Time of Encounter: 11:30 - Subjective Interval History: Patient seen and examined this morning. No acute overnight events. Denies any new complains. Feeling better. Diarrhea decreased to about 6-7 episodes. Non bloody. Abdmominal tenders improving. No fever but some chills. No N/V, chest pain, sob. - Exam Vitals: Temp Pulse Resp BP Pulse Ox 98.0 F 78 14 134/74 91 08/26/18 11:08 08/26/18 11:08 08/26/18 11:08 08/26/18 11:08 08/26/18 11:08 Exam: General: pleasant, In no distress HEENT: Moist mucous membrane Cardiovascualr: Regular rate and rhythm with no murmur, absent gallops or rubs, absent pedal edema, radial pulses 2 out of 4 Lungs: Clear to auscultation bilaterally, not in respiratory distress Abdomen: Multiple scars noted. Soft, minimally tender. improved. nondistended, bowel sounds normal, absent hepatomegaly Skin: warm and dry, absent rash, absent open wounds and nodules MSK: absent clubbing, cyanosis, joints without swelling Neuro: Cranial nerves II through XII intact, alert oriented 3, Psych: good insight and judgment - Summary of Assessment and Plan Summary of Assessment and Plan: Clostridium difficile colitis - h/o C.diff in 2012. which resulted in a colectomy - Current infection secondary to use of amoxicillin for URI - CT abdomen pelvis shows sigmoid colitis, possible ileus. - Started on high dose vancomycin, IV Flagyl. Flagyl now discontinued. c/w Vancomycin 500 TID oral - tolerating diet well. Diarrhea decreasing. Still some chills and abdominal tendernessd Septic shock - Now resolved - Secondary to C. difficile colitis - Off pressor. Vitals now stable. History of seizures - c/w home Keppra. History of hyperlipidemia - c/w lovastatin DVT prophylaxis - Heparin subcutaneous Plan for DC tomorrow - Time Spent with Patient Total time spent is greater than 50% in coordination of care (as documented) at patient's floor/unit and/or counseling patient: Internal Medicine: Result - Labs CBC & Chem 7: 08/25/18 11:35 08/26/18 04:00 Labs: Short CBC 08/25/18 Range/Units 11:35 WBC 8.2 (4.3-11.1) K/mcL Hgb 11.4 L (11.5-15.4) g/dL Hct 34.7 L (35.3-44.9) % Plt Count 388 (140-400) K/mcL Neutrophils # 4.8 (1.6-8.9) K/mcL BMP 08/25/18 08/26/18 11:35 04:00 Sodium 141 141 Potassium 3.2 L 3.8 Chloride 102 105 Carbon Dioxide 30 H 29 BUN 2 L 2 L Creatinine 0.58 L 0.45 L Glucose 87 105 Calcium 8.6 8.7 Consult Discharge Plan - Plan Referrals: Kristin Davis MD [Primary Care Provider] -
[2018-08-26] MEDS: Gabapentin 300 MG CAPSULE PO SCH (20:58)
[2018-08-27] MEDS: *HR* Heparin 5,000 UNIT/ML VIAL SQ SCH (05:28)
[2018-08-27 07:26] VITALS: BP 178/93
[2018-08-27] MEDS: Nicotine 14 MG PATCH.TD24 TD SCH (08:09)
[2018-08-27] MEDS: diazePAM 2 MG TABLET PO SCH (08:09)
[2018-08-27] MEDS: levETIRAcetam 250 MG TABLET PO SCH (08:09)
[2018-08-27] MEDS: Vancomycin Oral Soln 125 MG/2.5 ML UDC PO SCH (08:16)
[2018-08-27] MEDS: D5% in 0.45% NACL 1,000 ML IVC SCH (08:33)
[2018-08-27] MEDS: Ketorolac 15 MG/ML VIAL IVP PRN (08:33)
--- NOTE | 2018-08-27 08:36 | Discharge Summary ---
- NOTES TO OUTPATIENT PROVIDER Notes to Outpatient Provider: Give 10 doses of diazepam. Consider psychiatric consult for anxiety management without benzodiazepine. Needs to continue vancomycin for 9 more days for C. difficile colitis. Please follow blood pressure as it was elevated in hospital probably secondary to ketorolac. Date of Encounter: 08/27/18 Time of Encounter: 08:31 Hospital course: Ms. Howard is a 53 year old female past medical history of hyperlipidemia seizures and history of fulminant C. difficile in 2012 requiring colectomy and they are working ileostomy which was later reversed came in with complain of profuse diarrhea for 6 days. Patient was started on amoxicillin few days before her symptoms for URI. Patient initially went to [facility]. She was hypotensive and needed central line placement and pressor support CT abdomen colitis and enteritis. Patient was admitted initially to ICU for severe sepsis and septic shock from C. difficile colitis and was started on IV Flagyl and vancomycin 500 4 times a day. General surgery was consulted would otherwise patient was not a surgical candidate. Patient improved over course of 2 days and was transferred to regular floor after septic shock resolved. Patient's diarrhea improved over the course of next 2 days and patient tolerated well. Patient to be discharged to home to continue oral vancomycin to finish 14 day course for an initial episode of C. difficile colitis given her last episode was in 2012. Discussed with patient about antibiotic use precipitating C. difficile. Patient blood pressure was elevated for past 2-3 days of hospitalization likely secondary to Toradol use. Patient would be discharged today to home to follow-up with PCP within one week for blood pressure as well as follow-up hospitalization visit. Discharge discussed with: patient, nurse - Time Spent with Patient Total time spent providing and/or coordinating discharge services: Greater than 30 minutes (40) - Discharge Medications Prescriptions: diazePAM [Valium] 5 mg PO TID 4 Days #10 tablet Vancomycin Oral Soln [Firvanq] 125 mg PO QID 9 Days #36 [facility] [place] Medications: Gabapentin [Neurontin] 300 - 600 mg PO HS 03/30/18 [History] Lovastatin 40 mg PO DAILY 03/30/18 [History] Tizanidine HCl 2 - 4 mg PO TID PRN 03/30/18 [History] levETIRAcetam [Keppra] 500 mg PO BID 03/30/18 [History] Acetaminophen [Tylenol] 650 mg PO Q6HR PRN 7 Days #56 tablet 04/01/18 [Rx] Vancomycin Oral Soln [Firvanq] 125 mg PO QID 9 Days #36 udc 08/27/18 [Rx] diazePAM [Valium] 5 mg PO TID 4 Days #10 tablet 08/27/18 [Rx] Allergies/Adverse Reactions: Allergy/AdvReac Type Severity Reaction Status Date / Time baclofen Allergy See Verified 08/23/18 18:41 Comments doxycycline Allergy Blister Verified 08/23/18 18:41 levofloxacin [From Levaquin] Allergy See Verified 08/23/18 18:41 Comments meloxicam [From Mobic] Allergy See Verified 08/23/18 18:41 Comments sertraline [From Zoloft] Allergy See Verified 08/23/18 18:41 Comments Date of admission: 08/22/18 21:53 Primary care physician: Kristin Davis MD Consults: 08/25/18 11:05 Consult to Invasive Line Access Team [CONS] Routine Reason for Consult: limited vascular access Line Type: EPIV Discharging clinician: April Han - Constitutional Vitals: Temp Pulse Resp BP Pulse Ox 97.5 F L 88 16 178/93 92 08/27/18 07:24 08/27/18 07:24 08/27/18 07:24 08/27/18 07:24 08/27/18 07:24 Exam: General: pleasant, In no distress HEENT: Moist mucous membrane Cardiovascualr: Regular rate and rhythm with no murmur, absent gallops or rubs, absent pedal edema, radial pulses 2 out of 4 Lungs: Clear to auscultation bilaterally, not in respiratory distress Abdomen: Multiple scars noted. Soft, non tender. improved. nondistended, bowel sounds normal, absent hepatomegaly Skin: warm and dry, absent rash, absent open wounds and nodules MSK: absent clubbing, cyanosis, joints without swelling Neuro: Cranial nerves II through XII intact, alert oriented 3, Psych: good insight and judgment. - Patient Status Disposition: Home, Self-Care - Discharge Instructions Follow Up With: Kristin Davis MD [Primary Care Provider] - Additional Instructions: Resume diet as tolerated, activity as tolerated. Call family physician Wednesday to schedule follow-up appt for 1 week. - Diet and Activity Activity: resume usual activities as tolerated
== END 2018-08-27 11:00 | disposition home or self-care (01) | DRG 871 ==
LOC: ICNU 21:53 → SUATTDRO 21:53 → 3ANU 08-24 14:57
PROVIDERS: ADMIT Internal Medicine; ATTEND Internal Medicine